=== PATIENT | male | born 1940 | race Caucasian/White ===

== ENCOUNTER 2025-04-19 03:44 | Emergency (ER) | payer SELFPAY ==
--- NOTE | 2025-04-19 | ECG_ITS ---
Test Reason : WEAKNESS Blood Pressure : */* mmHG Vent. Rate : 74 BPM Atrial Rate : * BPM P-R Int : * ms QRS Dur : 90 ms QT Int : 420 ms P-R-T Axes : * 10 -7 degrees QTcB Int : 466 ms Atrial fibrillation Nonspecific ST and T wave abnormality Abnormal ECG No previous ECGs available Referred By: Generic ED Physician Electronically Signed By: JJ PEREZ
--- NOTE | ~2025-04-19 | XR_ITS ---
EXAMINATION: XR CHEST CLINICAL INFORMATION: sepsis, PNA? COMPARISON: None available. TECHNIQUE: Portable AP upright position view of the chest was obtained. FINDINGS: Prominence of the interstitial markings with a pulmonary reticular pattern. Poor inspiration. Cardiomediastinal silhouette size is normal. Calcified plaque thoracic aorta. No gross consolidation pleural effusion or pneumothorax. Multilevel spondylosis. Degenerative changes in the shoulders. XR/XR chest 1V IMPRESSION: Chronic interstitial lung disease. Superimposed mild interstitial lung edema versus acute small airway inflammatory process cannot be excluded. Electronically signed by: Redd Diamond MD 04/19/2025 07:05 AM LILY
[2025-04-19 03:47] VITALS: BP 119/80; BP 138/80; PULSE 66; PULSE 72; RESP 18; TEMP 36.4; O2SAT 95; O2SAT 96; BMI 29.6
[2025-04-19 04:17] LABS: MANUAL DIFF FLAG NO
[2025-04-19 04:27] LABS: Hematocrit 36.8 % (42.0-52.0); Hemoglobin 12.6 g/dl (14.0-18.0); Imm Gran Abs Auto 0.05 X10*3/uL (0.00-0.03); Imm Gran Pct Auto 0.5 % (0.0-0.4); Lymphocytes Absolute Auto 1.1 X10*3/uL (1.2-4.9); Mean Corpuscular HGB Conc 34.2 g/dl (31.0-36.0); Mean Corpuscular Hemoglobin 33.7 pg (27.0-33.0); Mean Corpuscular Volume 98.4 fL (80.0-98.0); NRBC Abs Auto 0.000 X10*3/uL (0.0-0.012); NRBC Pct Auto 0.0 /100WBC (0.0-0.2); Platelet Count 244 X10*3/uL (160-400); Red Blood Count 3.74 X10*6/uL (4.60-5.80); White Blood Count 9.4 X10*3/uL (4.8-10.8)
[2025-04-19 04:32] LABS: COVID-19 Test Negative (Negative); IDNOW Serial# 55D5AD1C; IDNOW Serial# 58CA691E; Influenza B2 Negative (Negative)
[2025-04-19 04:37] LABS: Alanine Aminotransferase 25 U/L (0-40); Albumin Level 3.9 g/dL (3.5-5.0); Alkaline Phosphatase 62 U/L (39-117); Anion Gap 13 (12-20); Aspartate Amino Transferase 25 U/L (5-37); Blood Urea Nitrogen 24 mg/dL (9-16); Calcium 9.4 mg/dL (8.4-10.2); Carbon Dioxide 23 mmol/L (22-29); Chloride 110 mmol/L (96-108); Creatinine Clr Calc Pharmacy 29.1; Estimated Glomerular Filt Rate 33; Potassium 3.8 mmol/L (3.3-5.1); Sodium 142 mmol/L (135-145); Total Protein 6.9 g/dL (6.5-8.0)
[2025-04-19 04:45] LABS: Troponin-I High Sensitivity < 2.7 ng/L (<3.5-35.0)
[2025-04-19 04:58] VITALS: BP 133/75; PULSE 78; RESP 17; TEMP 35.3; O2SAT 96
[2025-04-19 05:08] LABS: Appearance Urine Clear; Glucose Urine UA Negative (Negative); PH 7.0 (5.0-9.0); Specific Gravity - Urine 1.010 (1.005-1.025)
--- NOTE | 2025-04-19 05:24 | ED_ITS ---
HPI - General Adult General Chief complaint: Nausea/Vomiting/Diarrhea Stated complaint: weakness Time Seen by Provider: 04/19/25 04:28 Source: patient and family Limitations: no limitations History of Present Illness ED Provider: Hanna Ornelas PA-C HPI narrative: 85-year-old male with a history of hypertension, hyperlipidemia, AFib on dabigatran, GERD and BPH who presents with extreme lethargy and weakness. Patient states he was not feeling ?like himself?, throughout the day. Overnight, he woke to use the bathroom, he was profoundly globally weak and fatigued. He felt lightheaded and developed nausea vomiting. Denies abdominal pain, diarrhea, fever or sick contacts with similar symptoms. Denies recent cough or cold symptoms. Denies headache, chest pain, shortness of breath or palpitations. No dysuria. The patient and his are here visiting family. Related Data Previous Rx's ?Medication ?Instructions ?Recorded ondansetron 4 mg disintegrating 4 mg PO Q8H PRN nausea and 04/19/25 tablet vomiting #4 tabs Allergies Allergy/AdvReac Type Severity Reaction Status Date / Time clindamycin Allergy Hives Verified 04/19/25 03:52 Review of Systems 2 Review of Systems: Yes all other systems are reviewed and are negative Constitutional: Constitutional: Reports fatigue, Denies fever(s), Denies headache(s), Reports lethargy and Reports malaise ENT: Reports dizziness and Denies headache(s) Cardiovascular: Cardiovascular: Denies chest pain and Denies dyspnea Respiratory: Respiratory: Denies cough and Denies dyspnea Gastrointestinal: Gastrointestinal: Denies abdominal pain, Reports nausea and Reports vomiting Genitourinary: Genitourinary: Denies dysuria Neurologic: Reports dizziness and Denies headache(s) Endocrine: Endocrine: Reports fatigue PMF Past Medical History Attestation statement: The following information was validated with the patient. Social History Social History Alcohol intake: current Alcohol type: hard liquor Smoked in Last 30 Days: No Use of substances other than those prescribed or required for medical reasons: No Advance Directives: No Advance Directives Information Provided: Yes Physical Exam ED Vital Signs: Vital Signs - 24 hr 04/19/25 03:47 04/19/25 04:58 04/19/25 06:32 Temperature 97.5 F 95.5 F L 97.5 F Pulse Rate 72 78 80 Respiratory Rate 18 17 15 Blood Pressure 119/80 133/75 119/79 Pulse Oximetry 96 96 97 Oxygen Delivery Method Room Air Room Air Room Air 04/19/25 08:25 04/19/25 09:06 Temperature 97.2 F 97.2 F Pulse Rate 74 74 Respiratory Rate 16 16 Blood Pressure 112/71 112/71 Pulse Oximetry 95 95 Oxygen Delivery Method Room Air Room Air BMI result Body Mass Index 29.6 Const Other: Awake, ill-appearing Orientation/consciousness: patient oriented x3 Eyes Other: No nystagmus Resp Effort & Inspection: normal respiratory effort Cardio Other: Normal peripheral perfusion GI Other: Soft, nondistended nontender no guarding Skin Other: Warm dry no rash Neuro General: patient oriented x3, no focal motor deficits and CN's II-XI intact bilaterally Extrem Other: Moves all extremities independently, is globally weak Psych Other: Cooperative, flat affect Course Course Course Narrative: Signed out to day team pending imaging, labs and final disposition Reevaluation(s) Reevaluation #1: At 5:18 a.m. on April 19, a sepsis focused exam was performed. The patient is hypothermic, rectal temp of 95.5?, in addition to screening labs which have already been obtained, adding on blood cultures, lactic, giving IV fluids, placing a warming blanket on the patient, we will assess for potential infectious sources; adding on chest x-ray, urinalysis, viral panel in process. Time: 05:18 Reevaluation #2: 6:34 AM 04/19/2025 (Dr. Sotero Aviles): I, Dr. Aviles have take over the care of this patient, I reviewed pertinent blood work and imaging, re-evaluated the patient when appropriate. Patient states woke up with nausea or vomiting no diarrhea, he was noted to be hypothermic, we do not know his basic renal function creatinine elevated to 1.94, no leukocytosis no lactic elevation, Urinalysis serologies negative, chest x-ray one view difficult to interpret we will add on CT chest dry as well as dry abdominal source, patient with loaded with the antibiotics ceftriaxone, and then I will re-evaluate the patient and determine disposition, patient states he overall feels well denied any ear pain sore throat any rashes or ulcerations on his body. 8:35 AM 04/19/2025 (Dr. Sotero Aviles): I spoke to the patient and his they did not want to stay for either CAT scan of the chest or abdomen and pelvis as I was recommending, they state he feels much better and if he feels worse to come back, they are going to delay his flight and rest at home, he has not been hypothermic off Sergey Hugger, I think it is reasonable I did not find anything in the workup for me to be exclusively concerned that he needs imaging or admission, patient is is able to make healthcare decisions regarding himself and he has is partner with the him to support so we will discharge per their request without AMA of note his abdominal exam is benign and he has been vomiting Medications Administered Discontinued Medications Generic Name Dose Route Start Last Admin Trade Name Freq PRN Reason Stop Dose Admin Sodium Chloride 500 mls @ 500 mls/hr 04/19/25 04:28 04/19/25 05:29 Ns IV 04/19/25 05:27 Infused .Q1H ONE Infusion Sodium Chloride 1,000 mls @ 999 mls/hr 04/19/25 05:00 04/19/25 06:25 Ns IV 04/19/25 06:00 Infused .Q1H1M CHRISTAL Infusion Ceftriaxone Sodium 2 gm/ 50 mls @ 100 mls/hr 04/19/25 05:18 04/19/25 06:04 Sodium Chloride IV 04/19/25 05:47 Infused ONCE ONE Infusion Ondansetron HCl 4 mg 04/19/25 04:28 04/19/25 04:38 Ondansetron Hcl 4 Mg/2 Ml Vial IVPUSH 04/19/25 04:29 4 mg ONCE ONE Administration Medical Decision Making Medical Decision Making MDM Narrative: 85-year-old male with a history of hypertension, hyperlipidemia, AFib on dabigatran, GERD and BPH who presents with extreme lethargy and weakness. Patient states he was not feeling ?like himself?, throughout the day. Overnight, he woke to use the bathroom, he was profoundly globally weak and fatigued. He felt lightheaded and developed nausea vomiting. Denies abdominal pain, diarrhea, fever or sick contacts with similar symptoms. Denies recent cough or cold symptoms. Denies headache, chest pain, shortness of breath or palpitations. No dysuria. The patient and his are here visiting family. Problem: Age, AFib History: Per patient and his spouse I have considered the following differential diagnoses: Sepsis, pneumonia, urinary tract infection, viral syndrome, acute intra-abdominal pathology, vertigo Plan: Patient meets sepsis criteria he is hypothermic, in addition to screening labs, we will be adding on blood cultures and lactic. We will be giving IV fluid therapy, and starting ceftriaxone. Viral panel in process, urine was just collected, chest x-ray pending. To note in regard to his lightheaded and dizziness, it is not vertiginous in nature, he has no nystagmus, position change of the head does not elicit symptoms. Given acute onset nausea vomiting, I am considering underlying intra-abdominal pathology, he denies abdominal pain, given his age, he could be masking his symptoms, adding on a CT scan of the abdomen and pelvis. I have independently reviewed the following tests: Labs: No overall leukocytosis, left shift noted, not anemic, no electrolyte abnormality, acute kidney injury of 1.94, troponin less than 2.7, viral panel negative, urine not infected, lactic EKG: AFib, rate of 74, nonspecific ST and T-wave abnormality, QT 466, Chest x-ray: CT abdomen and pelvis: Differential Diagnosis Differential Diagnoses: The differential diagnosis associated with the presentation includes See [facility] Admission/Observation Consideration of admission/observation: Escalation of care including admission/observation considered Lab Data [facility] Lab Attestation statement: I reviewed the patient's lab results. 04/19/25 04:08 04/19/25 04:08 Labs: Lab Results 04/19/25 04/19/25 04/19/25 Range/Units 04:08 05:02 05:22 WBC 9.4 (4.8-10.8) X10*3/uL RBC 3.74 L (4.60-5.80) X10*6/uL Hgb 12.6 L (14.0-18.0) g/dl Hct 36.8 L (42.0-52.0) % MCV 98.4 H (80.0-98.0) fL MCH 33.7 H (27.0-33.0) pg MCHC 34.2 (31.0-36.0) g/dl RDW 13.0 (11.0-16.0) % Plt Count 244 (160-400) X10*3/uL MPV 9.8 (9.4-12.4) fL Immature Gran % (Auto) 0.5 H (0.0-0.4) % Neut % (Auto) 73.2 H (45-73) % Lymph % (Auto) 12.0 L (20-40) % [place] % (Auto) 11.6 H (2-11) % Eos % (Auto) 1.8 (0-4) % Baso % (Auto) 0.9 (0-2) % Lymph # (Auto) 1.1 L (1.2-4.9) X10*3/uL Anson # (Auto) 1.1 (0.1-1.2) X10*3/uL Eos # (Auto) 0.2 (0.0-0.4) X10*3/uL Baso # (Auto) 0.1 (0.0-0.2) X10*3/uL Abs Immat Gran (auto) 0.05 H (0.00-0.03) X10*3/uL Absolute Neuts (auto) 6.9 (2.0-8.3) x10*3/uL Absolute Nucleated RBC 0.000 (0.0-0.012) X10*3/uL Nucleated RBC % (auto) 0.0 (0.0-0.2) /100WBC Sodium 142 (135-145) mmol/L Potassium 3.8 (3.3-5.1) mmol/L Chloride 110 H (96-108) mmol/L Carbon Dioxide 23 (22-29) mmol/L Anion Gap 13 (12-20) BUN 24 H (9-16) mg/dL Creatinine 1.94 H (0.5-1.4) mg/dL Estim Creat Clear Calc 29.1 Estimated GFR 33 Random Glucose 150 H (60-115) mg/dL Lactic Acid 1.8 (0.5-2.0) mmol/L Calcium 9.4 (8.4-10.2) mg/dL Total Bilirubin 0.3 (0.0-1.0) mg/dL AST 25 (5-37) U/L ALT 25 (0-40) U/L Alkaline Phosphatase 62 (39-117) U/L Troponin I High Sens < 2.7 (<3.5-35.0) ng/L Total Protein 6.9 (6.5-8.0) g/dL Albumin 3.9 (3.5-5.0) g/dL Urine Color Yellow Urine Appearance Clear Urine pH 7.0 (5.0-9.0) Ur Specific [place] 1.010 (1.005-1.025) Urine Protein Negative (Neg-Trace) mg/dL Urine Glucose (UA) Negative (Negative) mg/dL Urine Ketones Negative (Negative) mg/dL Urine Blood Negative (Negative) Urine Nitrite Negative (Negative) Ur Leukocyte Esterase Negative (Negative) COVID-19 (ALMA) Negative (Negative) COVID-19 Clin Com See Note Influenza Type A (BILL) Negative (Negative) Influenza Type B (BILL) Negative (Negative) Influenza A & B Note See Note Independent Interpretation I performed an independent interpretation of an: EKG Discharge Plan Discharge Clinical Impression: Acute kidney injury, Sepsis, Weakness generalized Patient Disposition: Home, Self-Care Additional Instructions: I did send Zofran 4 mg to the [facility] [place] in case he has nausea and vomiting and can use 1 pill every 8 hours, I am not sure what his baseline kidney function is but there was likely some degree of dehydration based on blood work, continue to make sure that he is staying well hydrated, with concerned that he has a underlying infection as his temperature was a little low initially which is pretty much the same as having a fever, viral swab negative, urinalysis negative, chest x-ray without obvious pneumonia, the rest of the blood work more or less reassuring, we spoke about getting CAT scan of the chest abdomen pelvis just to make sure there was no underlying infection that maybe missing, you did receive a dose of antibiotics which I do not feel that I need to continue at this time, and as we have discussed my recommendation was to stay in the hospital further workup but you chose to be discharged and I am okay with the plan just make sure that his anything worse and that is anything concerning come back to the ER, and I do recommend that he does not flight today and this note can serve as a flight protection that he was in the ER Prescriptions: New ondansetron 4 mg tablet,disintegrating 4 mg PO Q8H PRN (Reason: nausea and vomiting) Qty: 4 0RF Stand Alone Forms: Work/School Release Interventions: ED Discharge Assessment Last Done: 04/19/25 09:06 Discharge Date/Time: 04/19/25 09:07 Print Language: Yemeni
--- OUTSIDE RECORDS SUMMARY | 2025-04-19 06:16 | XMS_ITS | Clinical Summary ---
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 Xarelto QIEUSER QIEUSER METOPROLOL SUCCINATE ER 100 MG [id number] Take 1 Tablet (100 mg) by mouth once daily. metoprolol succinate [id number] QIEUSER QIEUSER FAMOTIDINE 40 MG TABS Take 1 Tablet (40 mg) by mouth at bedtime. famotidine [id number] QIEUSER QIEUSER EZETIMIBE 10 MG TABS Take 1 Tablet (10 mg) by mouth once daily. ezetimibe [id number] QIEUSER QIEUSER DILTIAZEM HCL ER BEADS 360 MG [id number] Take 1 Capsule (360 mg) by mouth once daily. diltiazem hcl [id number] QIEUSER QIEUSER DEXAMETHASONE SODIUM PHOSPHATE 4 MG/ML SOLN 4 mg Intra-Articular dexamethasone sodium phosphate [id number] QIEUSER QIEUSER DEXAMETHASONE SODIUM PHOSPHATE 4 MG/ML SOLN 4 mg Intra-Articular dexamethasone sodium phosphate [id number] QIEUSER QIEUSER cholecalciferol, vitamin D3, (Vitamin D3) 100 mcg (4,000 uni Vitamin D3 QIEUSER QIEUSER ATORVASTATIN CALCIUM 80 MG TABS Take 1 Tablet (80 mg) by mouth once daily. atorvastatin [id number] QIEUSER QIEUSER Medications Administered No information available. Allergies, Adverse Reactions, Alerts Allergy Name Reaction Description Start Date Severity Statu s Provider CLINDAMYCIN Hives Critical Active Arturo mayers Results Date Name Value Unit Range Flag Description Chart Maintenance: Patient I ntake ABSOLUTE MON 1.1 10*3/uL Monocyte s [#/volume] in Blood ABS EOS 0.2 {Cells}/uL Eosinophil s [#/volume] in Blood CA 9.7 mg/dL Calcium [Mass /volume] in Serum or Plasma ABSOLUTE BAS 0.0 10*3/uL Basophil s [#/volume] in Blood ABS LYMPHOCY 1.5 10*3/uL Absolute Lymphocytes ABS NEUTROPH 4.3 10*3/uL Neutroph ils [#/volume] in Blood NON-HDL CHOL 106 mg/dL choleste rol, non-HDL, total % BASO AUTO 0.4 % basophils as percent of blood leukocytes, automated count % EOS AUTO 2.4 % Eosinophil s/100 leukocytes in Blood by Automated count CHOL/HDL 2.66 cholesterol/ HDL ratio, serum GLUCOSE SER 111 mg/dL Glucose [ Mass/volume] in Serum or Plasma PLATELT(EST) Adequate platele t count, estimate TRIGLYC TOT 158 mg/dL Triglycer concepción [Mass/volume] in Serum or Plasma - mg/dL MPV 9.8 fL Platelet mean volume [Entitic volume] in Blood by Liza BUN/CREAT 20 Urea nitrog en/Creatinine [Mass Ratio] in Serum or Plasma MONOCYTE % 15.1 % Monocytes/ 100 leukocytes in Blood by Automated count MCH 33.3 pg MCH [Entitic mass] by Automated count RDW 14.3 % Erythrocyte d istribution width [Ratio] by Automated count MCHC 33.9 % MCHC [Mass/vo lume] by Automated count PMN % 61.3 % Neutrophils/1 00 leukocytes in Blood by Automated count MCV 99 fL MCV [Entitic volume] by Automated count ANION GAP 9 Anion gap 4 in Serum or Plasma SODIUM 137 mmol/L Sodium [Moles /volume] in Serum or Plasma WBC 7.0 10*3/mm3 Leukocytes [ #/volume] in Blood by Automated count RBC 4.56 10*6/mm3 Erythrocytes [#/volume] in Blood by Automated count PLATELETS 206 10*3/mm3 Platelets [#/volume] in Blood by Automated count HGB 15.2 g/dL Hemoglobin [M ass/volume] in Blood HCT 44.9 % Hematocrit [V olume Fraction] of Blood by Automated count BILI TOTAL 0.7 mg/dL Bilirubin. total [Mass/volume] in Serum or Plasma SGPT (ALT) 37 U/L Alanine am inotransferase [Enzymatic activity/volume] in Serum or Plasma SGOT (AST) 36 U/L Aspartate aminotransferase [Enzymatic activity/volume] in Serum or Plasma PSA 0.78 ng/mL Prostate spec ific Ag [Mass/volume] in Serum or Plasma PROTEIN, TOT 6.9 g/dL Protein [Mass/volume] in Serum or Plasma POTASSIUM 4.6 mmol/L Potassium [ Moles/volume] in Serum or Plasma MAGNESIUM 1.6 mg/dL Magnesium [ Moles/volume] in Serum or Plasma LDL 74 mg/dL Cholesterol i n LDL [Mass/volume] in Serum or Plasma - mg/dL HGBA1C 6.0 % Hemoglobin A1c/Hemoglobin, total in Blood - % HDL 64 mg/dL Cholesterol i n HDL [Mass/volume] in Serum or Plasma - mg/dL CREATININE 1.23 mg/dL Creatinine [Mass/volume] in Serum or Plasma CHOLESTEROL 170 mg/dL Cholester ol [Mass/volume] in Serum or Plasma - mg/dL CHLORIDE 102 mmol/L Chloride [Mo les/volume] in Serum or Plasma BUN 25 mg/dL Urea nitrogen [Mass/volume] in Serum or Plasma ALK PHOS 59 U/L Alkaline josé luis sphatase [Enzymatic activity/volume] in Blood Office Visit: Office Visit F ollow up Pt schd fax MEDS REVIEW Done Documenta tion of current medications (procedure) Plan of Care Type Date Detail Pending order Follow up as nee ded Pending order Immunofixation S danay w/Electrophoresis Pending order Methylmalonic Ac id Serum (MMA) Pending order T4 Free Direct Pending order TSH Pending order Vitamin B6 (Pyri doxine) - fasting after midnight Pending order Vitamin B12 Pending order We will contact you with test results Pending order Follow up as nee ded Procedures Code Procedure Name Date Entry Date [facility]-[id number] Documentation of current medicatio ns ORDERS Follow up as needed ORDERS Follow up as needed [facility]-[id number] Documentation of current medicatio ns ORDERS Immunofixation Serum w/Electrophoresis 08/08/26 ORDERS Methylmalonic Acid Serum (MMA) ORDERS T4 Free Direct ORDERS TSH ORDERS Vitamin B6 (Pyridoxi ne) - fasting after midnight ORDERS Vitamin B12 ORDERS We will contact you with test results 08/18/26 Vital Signs Date Name Value Unit Description Height 67.01 [in_us] height E&M BMI (Body Mass Index) 29.44 kg/m2 Bod y Mass Index (Ratio) Body Temperature 36.5 [degF] temperat ure E&M BP Diastolic 78 mm[Hg] blood pressu re, diastolic BP Systolic 122 mm[Hg] blood pressur e, systolic Heart Rate 62 /min pulse rate Respiratory Rate 16 /min respirat ory rate E&M Weight Measured 85.276 kg weight in kilograms E&M Immunizations No information available. Advance Directives No information available.
--- OUTSIDE RECORDS SUMMARY | 2025-04-19 06:17 | XMS_ITS | Clinical Summary ---
Author Organization [employer] [facility] Address [facility] [place] [address] Care Team Providers Care Warehouse Administrator Name Role Phone Javier Hagen MD Primary Care Provider [phone] Oswaldo Augustin MD Unavailable [phone] Stephanie Kelley MD Unavailable [phone] Chantal Zee MD Unavailable [phone] Allergies Active Allergy Reactions Criticality Noted Date Comments Clindamycin Hives Medium 08/31/2010 Medications cholecalciferol, vitamin D3, (Vitamin D3) 100 mcg (4,000 unit) cap 04/17/20 20 Active cyanocobalamin (B-12 Compliance) 1,000 mcg/mL injection 09/30/19 24 Active betamethasone, augmented dipropionate 0.05 % creamIndications:Pl aque psoriasis Apply topically to affected area(s) two times daily. Do not apply to face, underarms, or groin. 100 g 3 10/20/19 25 Active metoprolol succinate (TOPROL XL) 100 mg Sustained-Release tabletIndications:P ersistent atrial fibrillation (HC) Take 1 Tablet (100 mg) by mouth once daily. 100 Tablet 3 02/23/20 25 Active tamsulosin 0.4 mg capsuleIndications: BPH with urinary obstruction Take 1 Capsule (0.4 mg) by mouth once daily after a meal. 90 Capsule 3 02/28/20 25 Active famotidine (PEPCID) 40 mg tabletIndications:C hronic GERD Take 1 Tablet (40 mg) by mouth at bedtime. 90 Tablet 3 02/28/20 Active dabigatran (PRADAXA) 75 mg capsuleIndications: prevent thromboembolism in chronic atrial fibrillation Take 1 Capsule (75 mg) by mouth two times daily. 180 Capsule 3 03/06/20 Active atorvastatin (LIPITOR) 80 mg tabletIndications:H yperlipidemia, unspecified hyperlipidemia type Take 1 Tablet (80 mg) by mouth once daily. 100 Tablet 3 03/08/20 Active diltiazem CD (CARDIZEM CD) 360 mg extended release 24 hr capsuleIndications: Persistent atrial fibrillation (HC) Take 1 Capsule (360 mg) by mouth once daily. 90 Capsule 3 03/19/20 Active ezetimibe (ZETIA) 10 mg tabletIndications:P ersistent atrial fibrillation (HC),Hyperlipidemia , unspecified hyperlipidemia type Take 1 Tablet (10 mg) by mouth once daily. 90 Tablet 3 03/19/20 Active cyclobenzaprine (FLEXERIL) 5 mg tabletIndications:S train of flank, initial encounter Take 1 Tablet (5 mg) by mouth 3 times daily if needed for Muscle Spasm. 30 Tablet 1 02/17/20 025 Discontin ued(*Melanie ent states no longer taking) Elevated Toilet Seat with ArmsIndications:Lucrecia duque osteoarthritis of right hip For home use. Patient is having hip replacement surgery on 04/24/25 and will need this for his house 1 Each 02/28/20 025 Discontin ued(*Melanie ent states no longer taking) Grab Bar miscIndications:Lucrecia duque osteoarthritis of right hip As directed. Patient is having hip replacement surgery on 04/24/25 and will need this for his home. 1 Each 02/28/20 025 Discontin ued(*Melanie ent states no longer taking) WalkerIndications:P rimary osteoarthritis of right hip Walker with front wheels for home use. Patient is having hip replacement surgery on 04/24/25 and will need this for his home. 1 Each 02/28/20 025 Discontin ued(*Melanie ent states no longer taking) durable medical equipment (DME)Indications:Pr imary osteoarthritis of right hip Hand Held shower head- Patient is having hip replacement surgery on 04/24/25 1 Each 03/02/20 025 Discontin ued(*Melanie ent states no longer taking) Active Problems Problem Noted Date Diagnosed Date BPH with urinary obstruction 02/27/2025 Greater trochanteric bursitis of right hip 11/11 Primary osteoarthritis of right hip 11/11/2024 Skin cancer 08/12/2024 Overview (09/08/2024): 07/2024; right dorsal wrist; squamous cell carcinoma, invasive; s/p excision 09/08/24 Dr. Persaud Avascular necrosis of femur, unspecified lateral ity 01/13/2024 PAD (peripheral artery disease) 08/12/2022 Prostate cancer screening 02/27/2022 Senile purpura 08/20/2021 Chronic GERD 03/08/2021 Chronic atrial fibrillation 03/08/2021 Coronary artery calcification 09/05/2020 Overview (09/05/2020): Noted incidentally on chest CT done in [place] after a syncopal episode in late 2019. Syncope and collapse 03/20/2020 Overview (10/01/2022): -- Episode in 2019 thought due to dehydration -- Recurrent episodes late 2021, early 2022. 30-day ACT 09/2022 showed no pauses longer than 3.0seconds, no extreme bradycardia. Gross hematuria 03/20/2020 Non-ischemic cardiomyopathy, resolved 03/07/2020 Overview (10/17/2020): -EF 35 to 40% by echo in the [employer] system 10/2016 in the setting of atrial fibrillation with RVR -Normal EF 10/2019. -Cardiomyopathy felt to be most likely tachycardia mediated, with possible contribution from alcohol (which was curtailed substantially after atrial fibrillation diagnosis). -- Echo 10/2020: EF 55% HTN (hypertension) 12/02/2019 Bilateral leg edema 07/06/2018 Laceration of right thumb without foreign body 0 09/14/2017 CKD (chronic kidney disease) stage 3, GFR 30-59 ml/min 03/11/2017 Psoriasis 05/20/2016 Hyperlipidemia 12/21/2015 Herpes zoster without complication 09/21/2015 Chronic neck pain 10/26/2014 Vertigo 07/31/2014 Dermatitis 04/26/2014 Overview (04/26/2014): Eczema versus psoriasis, has features of both Pseudophakia, both eyes 07/27/2012 Actinic keratosis 08/12/2011 S/P LASIK (laser assisted in situ keratomileusis ) 10/15/2010 Impaired fasting glucose 07/09/2010 Neuroma, 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 ED (erectile dysfunction) Overview (07/06/2009): mild Polyp of colon Overview (07/06/2009): colon 07 Resolved Problems Problem Noted Date Diagnosed Date Resolved Date Heart failure with reduced ejection fraction 4 02/27/2025 Community acquired pneumonia of left lower lobe of lung 07/15/2018 08/26/2018 Chronic atrial fibrillation 01/20/2017 03/02/2018 Diverticulitis of intestine without perforation or abscess 02/05/2015 12/21/2015 Neck pain 08/22/2013 10/26/2014 Other and unspecified hyperlipidemia 07/06/2009 02/19/2016 Elevated prostate specific antigen (PSA) 07/06/2009 08/18/2012 Plantar fasciitis 11/23/2008 10/26/2014 Encounters Date Type Department Care Team Description 04/17/2025 Telephone [facility] [address] [facility] [address] [place] [address] Sunita Osuna emergency department rn Nurse Navigator (Pre-op check in) 04/05/2025 Telephone [facility] [address] [facility] [address] [place] [address] Aric Rocha MD Prior Authorization 03/27/2025 8:30 AM MATH AND SCIENCE INSTRUCTOR Office Visit [address] [place] [address] Yasmine Mcfarlane PA Pre-Op Exam (DOS - 04/24/2025 INPATIENT RIGHT 2-INCISION TOTAL HIP ARTHROPLASTY) 03/27/2025 Travel 03/22/2025 2:20 PM MATH AND SCIENCE INSTRUCTOR Office Visit [facility] [address] [place] [address] Karen Varghese PA Derm Problem 03/22/2025 Travel 03/19/2025 Refill [facility] [address] [place] [address] Chantal Zee MD Refill Request (Diltiazem Cd, Ezetimibe) 03/18/2025 Travel 03/14/2025 12:40 PM CDT Ancillary Procedure [facility] [address] [place] [address] 03/14/2025 Travel 03/09/2025 Travel 03/07/2025 Refill [facility] [address] [place] [address] Javier Hagen MD Refill Request (Atorvastatin) 03/04/2025 Refill [facility] [address] [place] [address] Chanatl Zee MD Refill Request (Dabigatran) 03/03/2025 Telephone [facility] [address] [place] [address] Sunita Osuna, emergency department rn Nurse Navigator (Discharge planning) 03/01/2025 Telephone [facility] [address] [place] [address] Stefan Patterson PA DME Supply (Hand-held showerhead post surgery ) 02/28/2025 Telephone [facility] [address] [place] [address] Chantal Zee MD Medication Management 02/27/2025 9:00 AM CDT Office Visit [facility] [address] [place] [address] Javier Hagen MD Medicare ANNUAL (subsequent) Visit (Fasting - difficulty urinating the last few months, not fully emptying bladder, dribbling ) 02/27/2025 Telephone [facility] [place] [address] [place] [phone] Stefan Patterson PA Medication Management (PAIN ) 02/27/2025 Travel 02/22/2025 9:00 AM CDT Office Visit [facility] [address] [place] [address] Chantal Zee MD Follow Up ( FOLLOW UP ) 02/22/2025 Orders Only [facility] [address] [place] [address] Chantal Zee MD 1 scan: (1-Ord) 02/22/2025 02/22/2025 Travel 02/16/2025 9:40 AM CDT Office Visit [facility] [address] [place] [address] Javier Hagen MD Follow Up ([facility] 02/14 - left flank pain - pain is still about the same, sitting is better, worse with movement - rates pain 11/24 - has some bruising there, a little bit of open skin he has been using heat on the area ) 02/15/2025 Travel 02/14/2025 8:47 AM CDT - 02/14/2025 1:04 PM CDT Emergency [facility] [address] [place] [id number] Jase Benitez MD Acute left flank pain (Primary Dx) Discharge Disposition: Home Self Care 02/14/2025 Travel 02/14/2025 Nurse Triage [facility] [address] [place] [address] Javier Hagen MD Abdominal Pain 02/08/2025 8:30 AM CDT Nurse/Clinic Staff Only [address] [address] Flu Shot 02/07/2025 Travel 01/30/2025 Telephone [facility] [place] [address] [place] [phone] Stefan Patterson PA Questions 01/27/2025 Transcribe Orders [facility] [place] [address] [place] [phone] Aric Rocha MD 01/26/2025 9:40 AM CDT Office Visit [facility] [place] [address] [facility] [address] [place] [phone] Stefan Patterson PA Hip Pain/problem (EP, right hip follow up) 01/26/2025 Telephone [facility] [place] [address] [facility] [address] [place] [phone] Sunita Osuna emergency department rn Nurse Navigator (Assessment/RAPT/1 on 1 education) 01/26/2025 Travel 01/25/2025 Travel 01/24/2025 Travel 01/23/2025 Telephone [facility] [address] [facility] [address] [place] [phone] Stefan Patterson PA Appointment (Hip Surgery) from Last 3 Months Immunizations Immunization Administration Dates Next Due AMB Influenza, IIV3 (Age >=3 years)(Flu Clinic Only) 04/01/2013,03/02/2012,03/06/2011 Amb Influenza, Inact (High-d ose) (Flu Clinic Only) 04/14/2016,03/12/2015 Amb Influenza, Inactivated A IIV4 (Age 65+ Years) Preserv Free 02/13/2020 COVID-19 VACCINE SPIKEVAX (M ODERNA 50MCG/0.5ML) 12YO+ PFS 01/27/2024,03/02/2023 COVID-19 vaccine (Moderna 50 mcg/0.5mL) 12YO+ BIVALENT MD YAJAIRAV 02/07/2025 COVID-19 vaccine (V[employer]-Bio NTech 30mcg/0.3mL) 12YO+ ANDREY-SUCROSE PF, MDV 09/12/2021 COVID-19 vaccine ([employer] NTech 30mcg/0.3mL) PF, MDV 02/27/2021,08/28/2020,08/07/2020 DT (Age < 7 years) 01/06/1995 Influenza Virus, Unspecified 02/29/2024, 04/11/2008,04/20/2007,04/02,04/07/2005,04/19/2004,02/28/2003 ,03/15/2002,04/29/2001 Influenza, High-dose Inactivated 024,03/02/2018,03/11/2017,04/14,03/12/2015,03/23/2014 Influenza, High-dose Quadriv alent Inactivated 02/02/2021 Influenza, IIV3 (Age 6-35 mos) 03/06/2011 Influenza, IIV3 (Age >=3 years) 04/01/20 13,03/02/2012,03/21/2010,02/27,04/11/2008,04/20/2007,04/02/2006 ,04/19/2004,02/28/2003,03/15/2002,04/17 Influenza, Inactivated AIIV4 (Age 65+ Years) Preserv Free 03/02/2023,02/27/2022 Influenza, Inactivated IIV3 (Age 65+ Years) Preserv Free 02/08/2025,02/24/2019,03/02/2018,03/11 Pneumococcal Poly,23-Valent (Pneumovax) 05/28/2005 Pneumococcal conj 13-Valent (Prevnar 13) 10/26/2014,05/18/2014 Pneumococcal, Unspecified 05/18/1999 RSV, Recombinant ADJ Reconst ituted (Arexvy 120MCG/0.5mL) 03/01/2024 Td (Age >=7 Years) 12/14/2009,05/28/2005 Tdap 09/14/2017 Varicella Vaccine 04/01/2013, 2,03/21/2010,02/27 Zoster (Shingrix-RZV, recombinant) 05/13/2018, Zoster (Zostavax-ZVL, live) 02/14/2016, 0 Family History Medical History Relation Name Comments Thyroid Disease Daughter Cancer-prostate Father Cancer-prostate Maternal Uncle Diabetes Son Relation Name Status Comments Daughter Father Maternal Uncle Son Social History Tobacco Use Types Packs/Day Years Used Date Smoking Tobacco: Former Cigarettes Q uit: 05/18/1962 Smokeless Tobacco: Never Alcohol Use Standard Drinks/Week Comments Yes 0 (1 standard drink = 0.6 oz pur e alcohol) 4-5- per week PHQ-2 Answer Date Recorded PHQ-2 TOTAL SCORE 0 02/27/2025 Social Connections Answer Date Recorded Do you often feel lonely or isolated from those around you? 0 03/27/2025 Alcohol Use Answer Date Recorded How often do you have a drink containing alcohol ? 3 03/27/2025 How many drinks containing a lcohol do you have on a typical day when you are drinking? 0 03/27/2025 How often do you have five or more drinks on one occasion? 0 03/27/2025 Financial Resource Strain Answer Date R ecorded Difficulty of Paying Living Expenses 3 03/27/2025 Difficulty of Paying Living Expenses Not on file 03/27/2025 Food Insecurity Answer Date Recorded Do you worry your food will run out before you are able to buy more? 1 03/27/2025 Transportation Needs Answer Date Record ed Does lack of transportation keep you from medica l appointments? 1 03/27/2025 Does lack of transportation keep you from work, meetings or getting things that you need? 1 03/27/2025 Housing Stability Answer Date Recorded What is your housing situation today? 1 03/27/2025 Interpersonal Safety Answer Date Record ed Are you being hit, kicked, p ushed or yelled at (see row info)? No 02/14/2025 Interpersonal Safety Abuse 12 - 18 Not on file 02/14/2025 Interpersonal Safety Ambulatory Vulnerability No t on file 02/14/2025 Utilities Answer Date Recorded Do you have trouble paying f or utilities (for example, heat, electricity, water, phone)? 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 Not on file Not on file Not on file Last Filed Vital Signs Vital Sign Reading Time Taken Comments Blood Pressure 116/68 03/27/2025 8:37 AM MATH AND SCIENCE INSTRUCTOR Pulse 70 03/27/2025 8:37 AM MATH AND SCIENCE INSTRUCTOR Temperature 36.8 C (98.2 F) 02/16/2025 9:43 AM CDT Respiratory Rate 16 02/27/2025 9:13 AM CDT Oxygen Saturation 97% 03/27/2025 8:37 AM MATH AND SCIENCE INSTRUCTOR Inhaled Oxygen Concentration - - Weight 81.6 kg (180 lb) 03/27/2025 8:37 AM MATH AND SCIENCE INSTRUCTOR Height 167.6 cm (5' 6 ) 03/27/2025 8:37 AM MATH AND SCIENCE INSTRUCTOR Body Mass Index 29.05 03/27/2025 8:37 AM MATH AND SCIENCE INSTRUCTOR Plan of Treatment Upcoming Encounters Date Type Department Care Team (Latest Contact Info) Description 04/24/2025 9:50 AM MATH AND SCIENCE INSTRUCTOR Hospital Encounter [facility] [address] [facility] [place] [address] Aric Rocha MD [address] [facility] [address] [place] [address] 04/24/2025 9:50 AM MATH AND SCIENCE INSTRUCTOR - 04/24/2025 12:02 PM MATH AND SCIENCE INSTRUCTOR Surgery [facility] [address] [facility] [place] [address] Aric Rocha MD [address] [facility] [address] [place] [address] INPATIENT RIGHT 2-INCISION TOTAL HIP ARTHROPLASTY 05/08/2025 9:40 AM MATH AND SCIENCE INSTRUCTOR Office Visit [facility] - [facility] [place] [address] [facility] [address] [place] [phone] Sree Andres, ATC [address] [facility] [address] [place] [address] 05/16/2025 9:30 AM MATH AND SCIENCE INSTRUCTOR Office Visit [facility] [address] [place], [place] [phone] Arik Hicks, OD [address] [place] [address] 09/12/2025 10:40 AM CDT Office Visit [facility] [address] [place] [address] Karen Varghese PA [address] [place] [address] Scheduled Procedures Name Priority Associated Diagnoses Date/Ti me ARTHROPLASTY HIP MINIMALLY INVASIVE Tier 4: > 90 days Primary osteoarthritis of right hip 04/24/2025 9:50 AM MATH AND SCIENCE INSTRUCTOR Health Maintenance Due Date Last Done Comments COVID-19 vaccine series ( season) 2025 02/07/2025, 01/27/2024, 03/02/2023, Additional history exists Depression screening for age 12+ 02/27/2026 02/27/2025, 02/25/2024, 01/27/2024, Additional history exists Medicare Wellness for age 65+ 02/28/2026 02/27/2025, 02/25/2024, 03/02/2023, Additional history exists BMI (ht and wt on same day) for age 18+ 03/27/2026 03/27/2025, 02/27/2025, 02/22/2025, Additional history exists Tetanus booster 09/15/2027 09/14/2017, 11/17, 05/28/2005 Pneumococcal series for age 50+ Completed 10/26/2014, 05/18/2014, 05/28/2005, Additional history exists Zoster (shingles) series for age 50+ Completed 05/13/2018, 03/02/2018, 02/14/2016, Additional history exists RSV vaccine for adults or Completed 03/01/2024 Influenza Vaccine Completed 02/08/2025, , 01/28/2024, Additional history exists Hepatitis B series for 19+ Aged Out N o longer eligible based on patient's age to complete this topic Medical Devices Implanted Type Area Marketing Research Intern Device Identifier Shelf Expiration Date Model / Serial / Lot Lens Iol 20 [employer]ecnis - [id number] Implanted:Qty: 1 on 02/02/2012 by Oswaldo Augustin MD at [facility] Left: Eye [employer] 09/14/2016 [id number] / [id number] / [id number] - Charisse [id number] Lens Iol - 1 - Lens Iol 22 [employer]nis Implanted:Qty: 1 on 04/19/2012 by Oswaldo Augustin MD at [facility] [employer] [id number] / [id number] / Procedures Procedure Name Priority Date/Time Associated Diagnosis Comments BASIC METABOLIC PANEL Routine 03/27/2025 9:11 AM MATH AND SCIENCE INSTRUCTOR Preoperative examination CBC W PLT NO DIFF Routine 03/27/2025 9:1 1 AM MATH AND SCIENCE INSTRUCTOR Preoperative examination ECHO TTE COMPLETE W CONTRAST Routine 03/14/2025 1:11 PM CDT Persistent atrial fibrillation (HC) Dyspnea on exertion LIPID PANEL W REFLEX MEASURED LDL Routine 02/22/2025 9:47 AM CDT Hyperlipidemia, unspecified hyperlipidemia type EKG 12 LEAD Routine 02/22/2025 12:00 AM CDT Persistent atrial fibrillation (HC) CT ABDOMEN PELVIS W STAT 02/14/2025 1 1:20 AM CDT UA W/ SEDIMENT EXAM REFLEXED PER CRITERIA STAT 02/14/2025 10:01 AM CDT CBC WITH AUTO DIFFERENTIAL STAT 02/14/2025 9:52 AM CDT COMP METABOLIC PANEL STAT 02/14/2025 9:52 AM CDT PROTIME-INR STAT 02/14/2025 9:52 AM CDT CBC WITH AUTO DIFFERENTIAL STAT 02/14/2025 9:52 AM CDT from Last 3 Months Results * (ABNORMAL) CBC W PLT NO DIFF (03/27/2025 9:11 AM MATH AND SCIENCE INSTRUCTOR) WHITE BLOOD CELL COUNT 7.5 3.8 - 10.8 Thousand/ uL 03/28/2025 2:29 AM MATH AND SCIENCE INSTRUCTOR [facility] RED BLOOD CELL COUNT 3.84(L) 4.20 - 5.80 Million/u L 03/28/2025 2:29 AM MATH AND SCIENCE INSTRUCTOR [facility] HEMOGLOBIN 13.1(L) 13.2 - 17.1 g/dL 03/28/2025 2:29 AM MATH AND SCIENCE INSTRUCTOR [facility] HEMATOCRIT 38.7 38.5 - 50.0 % 03/28/2025 2:29 AM MATH AND SCIENCE INSTRUCTOR [facility] MCV 100.8(H) 80.0 - 100.0 fL 03/28/2025 2:29 AM MATH AND SCIENCE INSTRUCTOR [facility] MCH 34.1(H) 27.0 - 33.0 pg 03/28/2025 2:29 AM MATH AND SCIENCE INSTRUCTOR [facility] MCHC 33.9 32.0 - 36.0 g/dL 03/28/2025 2:29 AM MATH AND SCIENCE INSTRUCTOR [facility] Comment: For adults, a slight decrease in the calculated MCHC value (in the range of 30 to 32 g/dL) is most likely not clinically significant; however, it should be interpreted with caution in correlation with other red cell parameters and the patient's clinical condition. RDW 13.0 11.0 - 15.0 % 03/28/2025 2:29 AM MATH AND SCIENCE INSTRUCTOR [facility] PLATELET COUNT 335 140 - 400 Thousand/ uL 03/28/2025 2:29 AM MATH AND SCIENCE INSTRUCTOR [facility] MPV 9.9 7.5 - 12.5 fL 03/28/2025 2:29 AM MATH AND SCIENCE INSTRUCTOR [facility] Blood BLOOD SPECIMEN / Unknown [facility] / Unknown 03/27/2025 9:11 AM MATH AND SCIENCE INSTRUCTOR 03/27/2025 9:13 AM MATH AND SCIENCE INSTRUCTOR us Yasmine ROCK HEMATOLOGY Final Resu lt [facility] [address] [place] [address], [place] [phone] * (ABNORMAL) BASIC METABOLIC PANEL (03/27/2025 9:11 AM MATH AND SCIENCE INSTRUCTOR) SODIUM 139 135 - 146 mmol/L 03/28/2025 6:00 AM MATH AND SCIENCE INSTRUCTOR [facility] POTASSIUM 4.5 3.5 - 5.3 mmol/L 03/28/2025 6:00 AM MATH AND SCIENCE INSTRUCTOR [facility] CARBON DIOXIDE 23 20 - 32 mmol/L 03/28/2025 6:00 AM MATH AND SCIENCE INSTRUCTOR [facility] GLUCOSE 82 65 - 99 mg/dL 03/28/2025 6:00 AM MATH AND SCIENCE INSTRUCTOR [facility] Comment: Fasting reference interval CALCIUM 9.7 8.6 - 10.3 mg/dL 03/28/2025 6:00 AM MATH AND SCIENCE INSTRUCTOR [facility] CREATININE 1.62(H) 0.70 - 1.22 mg/dL 03/28/2025 6:00 AM MATH AND SCIENCE INSTRUCTOR [facility] BUN/CREATININE RATIO 22 6 - 22 (calc) 03/28/2025 6:00 AM MATH AND SCIENCE INSTRUCTOR [facility] EGFR 41(L) > OR = 60 mL/min/1. 73m2 03/28/2025 6:00 AM MATH AND SCIENCE INSTRUCTOR [facility] UREA NITROGEN (BUN) 35(H) 7 - 25 mg/dL 03/28/2025 6:00 AM MATH AND SCIENCE INSTRUCTOR [facility] ELECTROLYTE BALANCE 8 7 - 17 mmol/L (calc) 03/28/2025 6:00 AM MATH AND SCIENCE INSTRUCTOR [facility] CHLORIDE 108 98 - 110 mmol/L 03/28/2025 6:00 AM MATH AND SCIENCE INSTRUCTOR [facility] Blood BLOOD SPECIMEN / Unknown [facility] / Unknown 03/27/2025 9:11 AM MATH AND SCIENCE INSTRUCTOR 03/27/2025 9:13 AM MATH AND SCIENCE INSTRUCTOR Yasmine ROCK CHEMISTRY Final Resu lt [facility] [address] [place] [address], [place] [phone] * ECHO TTE COMPLETE W CONTRAST (03/14/2025 1:11 PM CDT) EJECTION FRACTION 61% PROSOLV Anatomical Region Laterality Modality Ultrasound 03/14/2025 12:2 8 PM CDT Narrative 03/14/2025 3:[address] PM [address]T [address], [place] [address] Main: Transthoracic Echo Report CHANO DUARTE Brionnarandall ID: [id number] Age: 85 : 1940 Ordering Provider: CHANTAL ZEE Exam Date: 03/14/2025 12:28 Gender: M Machine Tracer: HGR Height: 66 in BSA: 1.91 m BP: 110 / 64 Weight: 180 lbs BMI: 29.1 kg/m HR: 91 Location: [facility] Rhythm: Atrial Fibrillation Procedure Components: 2D imaging with contrast, Color Doppler, Spectral Doppler Indications: Dyspnea on exertion; Persistent atrial fibrillation (HC) Technical Quality: Fair Contrast: Definity Constrast Dose (ml): 2 [facility]#: [id number] Final Conclusion Previous Study: 09/05/2022 Normal left ventricular chamber size. Normal left ventricular wall thickness. Normal left ventricular systolic function. Indeterminate left ventricular diastolic function. Normal right ventricular chamber size. Normal right ventricular systolic function. Severe left atrial enlargement, moderate right atrial enlargement Valve changes consistent with age, no hemodynamically significant stenosis or regurgitation. Prior study not available for comparison due to software limitation Estimated EF: 61% FINDINGS Left Ventricle Normal left ventricular chamber size. Normal left ventricular wall thickness. Normal left ventricular systolic function. Calculated left ventricular ejection fraction (modified Charles technique) is 61 %. No regional wall motion abnormalities. Diastolic Function Indeterminate left ventricular diastolic function. Right Ventricle Normal right ventricular chamber size. Normal right ventricular systolic function. Right ventricular systolic pressure cannot be estimated due to inability to detect peak tricuspid regurgitation Doppler velocity. Left Atrium Severe left atrial enlargement. Left atrial volume index is 59 ml/m . Right Atrium Moderate right atrial enlargement. Atrial Septum No evidence of inter-atrial shunt by color flow Doppler. Aortic Valve Trileaflet aortic valve. Aortic valve sclerosis without stenosis. Trivial aortic valve regurgitation. Mitral Valve Mildly calcified mitral annulus. Mildly thickened mitral valve. No mitral valve stenosis. Mild mitral valve regurgitation. Tricuspid Valve Normal tricuspid valve. mild tricuspid valve regurgitation. Pulmonic Valve Pulmonary valve was not well visualized. Trivial pulmonary valve regurgitation. Pericardium No pericardial effusion. Prominent epicardial fat pad. Aorta Aortic sinus of Valsalva is normal in size (3.3 cm, ZScore = -1.9). Normal indexed ascending aorta dimension (3.6 cm, 1.9 cm/m ). Inferior Vena Cava Normal inferior vena cava with normal inspiratory collapse. MEASUREMENTS (Male / Female) Normal Values 2D MEASUREMENTS AND LV FUNCTION IVS Diastolic Thickness 0.842 cm < 1.1 cm / < 1.0 cm LV Diastolic Diameter PLAX 4.32 cm 4.2 - 5.9 / 3.9 - 5.3 cm LV Diastolic Diameter Index 2.26 cm/m LVPW Diastolic Thickness 0.78 cm < 1.1 cm / < 1.0 cm LV Systolic Diameter PLAX 3.14 cm LV Systolic Diameter Index 1.64 cm/m LVOT Diameter 2 cm LVOT Cardiac Output 4.63 l/min LVOT Cardiac Index 2.35 l/min m LVOT Stroke Volume 50.8 ml Stroke Volume Index 25.8 ml/m LV Ejection Fraction MOD BP 61.2 % >= 55 % LA Volume MOD BP 112 ml LA Volume Index MOD BP 58.6 ml/m 16 - 34 ml/m RV Diastolic Basal Diameter 3.94 cm RV Diastolic Mid Diameter 2.93 cm LV Mass 108 g LV Mass Index 55.5 g/m Sinuses of Valsalva Diameter(d) 3.3 cm Ascending Aorta Diameter(s) 3.6 cm IVC Diameter Expiration 1.77 cm Ascending Aorta Index 1.88 cm/m M MODE TAPSE MM 1.94 cm AORTIC VALVE AV Peak Velocity 1.18 m/sec < 2.0 m/sec AV Peak Gradient 5.61 mmHg AV Mean Gradient 3.6 mmHg AV Velocity Time Integral 24.3 cm LVOT Peak Velocity 0.811 m/sec LVOT Velocity Time Integral 16.2 cm AV Area Cont Eq vti 2.09 cm AV Area Cont Eq pk 2.15 cm AV Dimensionless Index 0.665 TRICUSPID VALVE AND ESTIMATED PRESSURES Right Atrial Pressure 3 mmHg HCM DATA LVOT DOE (r) 2.63 mmHg Aortic Root ZScore: -1.92 Gallo Coreas MD (Electronically Signed) [facility] Accredited Site Final Date: 14 March 2025 15:35 ICD-10 Codes: R06.09; I48.19 Procedure Note Gallo Coreas MD - 03/14/2025 [facility] [address], [place] [address] Main: Transthoracic Echo Report CHANO DUARTE Brionnarandall ID: [id number] Age: 85 : 1940 Ordering Provider:CHANTAL ZEE Exam Date: 03/14/2025 12:28 Gender: M Machine Tracer: HGR Height: 66 in BSA: 1.91 m BP: 110 / 64 Weight: 180 lbs BMI: 29.1 kg/m HR: 91 Location: [facility] Rhythm: Atrial Fibrillation Procedure Components: 2D imaging with contrast, Color Doppler, SpectralDoppler Indications: Dyspnea on exertion; Persistent atrial fibrillation (HC) Technical Quality: Fair Contrast: Definity Constrast Dose (ml): 2 [facility]#: [id number] Final Conclusion Previous Study: 09/05/2022 Normal left ventricular chamber size. Normal left ventricular wallthickness. Normal left ventricular systolic function. Indeterminate left ventricular diastolic function. Normal right ventricular chamber size. Normal right ventricular systolicfunction. Severe left atrial enlargement, moderate right atrial enlargement Valve changes consistent with age, no hemodynamically significantstenosis or regurgitation. Prior study not available for comparison due to software limitation Estimated EF: 61% FINDINGS Left Ventricle Normal left ventricular chamber size. Normal leftventricular wall thickness. Normal left ventricular systolic function. Calculated left ventricular ejection fraction (modified Simpsontechnique) is 61 %. No regional wall motion abnormalities. Diastolic Function Indeterminate left ventricular diastolic function. Right Ventricle Normal right ventricular chamber size. Normal rightventricular systolic function. Right ventricular systolic pressure cannot be estimated due to inability to detect peak tricuspidregurgitation Doppler velocity. Left Atrium Severe left atrial enlargement. Left atrial volume index is59 ml/m . Right Atrium Moderate right atrial enlargement. Atrial Septum No evidence of inter-atrial shunt by color flow Doppler. Aortic Valve Trileaflet aortic valve. Aortic valve sclerosis withoutstenosis. Trivial aortic valve regurgitation. Mitral Valve Mildly calcified mitral annulus. Mildly thickened mitralvalve. No mitral valve stenosis. Mild mitral valve regurgitation. Tricuspid Valve Normal tricuspid valve. mild tricuspid valveregurgitation. Pulmonic Valve Pulmonary valve was not well visualized. Trivial pulmonaryvalve regurgitation. Pericardium No pericardial effusion. Prominent epicardial fat pad. Aorta Aortic sinus of Valsalva is normal in size (3.3 cm, ZScore = -1.9).Normal indexed ascending aorta dimension (3.6 cm, 1.9 cm/m ). Inferior Vena Cava Normal inferior vena cava with normal inspiratorycollapse. MEASUREMENTS (Male / Female) Normal Values 2D MEASUREMENTS AND LV FUNCTION IVS Diastolic Thickness 0.842 cm < 1.1 cm / < 1.0cm LV Diastolic Diameter PLAX 4.32 cm 4.2 - 5.9 / 3.9 -5.3 cm LV Diastolic Diameter Index 2.26 cm/m LVPW Diastolic Thickness 0.78 cm < 1.1 cm / < 1.0cm LV Systolic Diameter PLAX 3.14 cm LV Systolic Diameter Index 1.64 cm/m LVOT Diameter 2 cm LVOT Cardiac Output 4.63 l/min LVOT Cardiac Index 2.35 l/min m LVOT Stroke Volume 50.8 ml Stroke Volume Index 25.8 ml/m LV Ejection Fraction MOD BP 61.2 % >= 55 % LA Volume MOD BP 112 ml LA Volume Index MOD BP 58.6 ml/m 16 - 34 ml/m RV Diastolic Basal Diameter 3.94 cm RV Diastolic Mid Diameter 2.93 cm LV Mass 108 g LV Mass Index 55.5 g/m Sinuses of Valsalva Diameter(d) 3.3 cm Ascending Aorta Diameter(s) 3.6 cm IVC Diameter Expiration 1.77 cm Ascending Aorta Index 1.88 cm/m M MODE TAPSE MM 1.94 cm AORTIC VALVE AV Peak Velocity 1.18 m/sec < 2.0 m/sec AV Peak Gradient 5.61 mmHg AV Mean Gradient 3.6 mmHg AV Velocity Time Integral 24.3 cm LVOT Peak Velocity 0.811 m/sec LVOT Velocity Time Integral 16.2 cm AV Area Cont Eq vti 2.09 cm AV Area Cont Eq pk 2.15 cm AV Dimensionless Index 0.665 TRICUSPID VALVE AND ESTIMATED PRESSURES Right Atrial Pressure 3 mmHg HCM DATA LVOT DOE (r) 2.63 mmHg Aortic Root ZScore: -1.92 Gallo Coreas MD (Electronically Signed) [facility] Accredited Site Final Date: 14 March 2025 15:35 ICD-10 Codes: R06.09; I48.19 us Chantal Zee MD ECHO ORD Final Resu lt * (ABNORMAL) LIPID PANEL W REFLEX MEASURED LDL (02/22/2025 9:47 AM CDT) CHOLESTEROL, TOTAL 157 <200 mg/dL 02/23/2025 4:23 AM CDT [facility] TRIGLYCERIDES 183(H) <150 mg/dL 02/23/2025 4:23 AM CDT [facility] HDL CHOLESTEROL 59 > OR = 40 mg/dL 02/23/2025 4:23 AM CDT [facility] NON HDL CHOLESTEROL 98 <130 mg/dL (calc) 02/23/2025 4:23 AM CDT [facility] Comment: For patients with diabetes plus 1 major ASCVD risk factor, treating to a non-HDL-C goal of <100 mg/dL (LDL-C of <70 mg/dL) is considered a therapeutic option. CHOL/HDLC RATIO 2.7 <5.0 (calc) 02/23/2025 4:23 AM CDT [facility] LDL-CHOLESTEROL 72 mg/dL (calc) 02/23/2025 4:23 AM CDT [facility] Comment: Reference range: <100 Desirable range <100 mg/dL for primary prevention; <70 mg/dL for patients with CHD or diabetic patients with > or = 2 CHD risk factors. LDL-C is now calculated using the Gerry-Salazar calculation, which is a validated novel method providing better accuracy than the Friedewald equation in the estimation of LDL-C. Gerry SS et al. SAYDA. 2013;310(19): 4208-3121 (http://education.TVTY.com/faq/VWM927) Blood BLOOD SPECIMEN / Unknown [facility] / Unknown 02/22/2025 9:47 AM CDT 02/22/2025 9:47 AM CDT Chantal Zee MD CHEMISTRY Final Resu lt [facility] [address] [place] [address], * EKG 12 LEAD (02/22/2025 12:00 AM CDT) Chantal Zee MD EKG ORD Final Resu lt * CT Abdomen Pelvis w IV (Oral Contrast = NO) (02/14/2025 11:20 AM CDT) Anatomical Region Laterality Modality Abdomen, Pelvis, AORTA, LIVER, SPLEEN Computed Tomography 02/14/2025 11:2 0 AM CDT Impressions 02/14/2025 11:38 AM CDT No acute findings in the abdomen or pelvis. No urinary stone. No acute hematoma. Narrative 02/14/2025 11:38 AM CDT For Patients: As a result of the Cures Act, medical imaging exams and procedure reports are released immediately into your electronic medical record. You may view this report before your referring provider. If you have questions, please contact your health care provider. EXAM: CT ABDOMEN PELVIS W LOCATION: [facility] MEDICAL IMAGING DATE: 02/14/2025 INDICATION: Flank pain. Left-sided flank pain. On blood thinners. Overlying ecchymosis. COMPARISON: CT abdomen pelvis runoff 09/04/2021 reviewed. TECHNIQUE: CT scan of the abdomen and pelvis was performed following injection of IV contrast. Multiplanar reformats were obtained. Dose reduction techniques were used. CONTRAST: 80 mL Omnipaque 350 FINDINGS: LOWER CHEST: Mild linear and reticular areas of scarring or atelectasis in the lower lungs. Coronary artery calcification. HEPATOBILIARY: Diffuse hepatic steatosis. No focal liver lesion. Normal gallbladder. PANCREAS: Normal. SPLEEN: Normal. ADRENAL GLANDS: Normal. KIDNEYS/BLADDER: Normal. No urinary stone or hydronephrosis. Normal symmetric renal parenchymal enhancement. BOWEL: Moderate colonic diverticulosis, greatest in the sigmoid region. No acute findings. No evidence of diverticulitis or colitis. No evidence of bowel obstruction. Normal appendix. No free air, free fluid or abscess. LYMPH NODES: Normal. VASCULATURE: Moderate atherosclerotic calcifications. Normal caliber abdominal aorta. PELVIC ORGANS: Normal. MUSCULOSKELETAL: Medium size fat-containing left inguinal hernia, unchanged. No evidence of acute or active bleeding. No focal hematoma. No acute osseous abnormality. Mild degenerative changes in the spine. Grade I anterolisthesis L5 on S1. Procedure Note Hemant Enriquez MD - 02/14/2025 For Patients: As a result of the Century Cures Act, medical imagingexams and procedure reports are released immediately into your electronicmedical record. You may view this report before your referring provider.If you have questions, please contact your health care provider. EXAM: CT ABDOMEN PELVIS W LOCATION: [facility] MEDICAL IMAG[facility] DATE: 02/14/2025 INDICATION: Flank pain. Left-sided flank pain. On blood thinners.Overlying ecchymosis. COMPARISON: CT abdomen pelvis runoff 09/04/2021 reviewed. TECHNIQUE: CT scan of the abdomen and pelvis was performed followinginjection of IV contrast. Multiplanar reformats were obtained. Dosereduction techniques were used. CONTRAST: 80 mL Omnipaque 350 FINDINGS: LOWER CHEST: Mild linear and reticular areas of scarring or atelectasis inthe lower lungs. Coronary artery calcification. HEPATOBILIARY: Diffuse hepatic steatosis. No focal liver lesion. Normalgallbladder. PANCREAS: Normal. SPLEEN: Normal. ADRENAL GLANDS: Normal. KIDNEYS/BLADDER: Normal. No urinary stone or hydronephrosis. Normalsymmetric renal parenchymal enhancement. BOWEL: Moderate colonic diverticulosis, greatest in the sigmoid region. Noacute findings. No evidence of diverticulitis or colitis. No evidence ofbowel obstruction. Normal appendix. No free air, free fluid or abscess. LYMPH NODES: Normal. VASCULATURE: Moderate atherosclerotic calcifications. Normal caliberabdominal aorta. PELVIC ORGANS: Normal. MUSCULOSKELETAL: Medium size fat-containing left inguinal hernia,unchanged. No evidence of acute or active bleeding. No focal hematoma. Noacute osseous abnormality. Mild degenerative changes in the spine. Grade Ianterolisthesis L5 on S1. IMPRESSION: No acute findings in the abdomen or pelvis. No urinary stone. No acutehematoma. us Jase Benitez MD CT Final R esult * (ABNORMAL) UA W/ SEDIMENT EXAM REFLEXED PER CRITERIA (02/14/2025 10:01 AM T) COLOR Yellow Yellow Color 02/14/2025 10:13 AM T [facility] CLARITY Clear Clear Clarity 02/14/2025 10:13 AM [facility] SPECIFIC GRAVITY,URINE 1.025 1.010, 1.015, 1.020, 1.025 02/14/2025 10:13 AM [facility] PH,URINE 6.5 6.0, 7.0, 8.0, 5.5, 6.5, 7.5, 8.5 02/14/2025 10:13 AM [facility] UROBILINOGEN, QUALITATIVE Normal Normal EU/dl 02/14/2025 10:13 AM [facility] PROTEIN, URINE Trace(A) Negative mg/dL 02/14/2025 10:13 AM [facility] GLUCOSE, URINE Negative Negative mg/dL 02/14/2025 10:13 AM [facility] KETONES,URINE Trace(A) Negative mg/dL 02/14/2025 10:13 AM [facility] BILIRUBIN,URI NE Negative Negative 02/14/2025 10:13 AM [facility] OCCULT BLOOD,URINE Negative Negative 02/14/2025 10:13 AM [facility] NITRITE Negative Negative 02/14/2025 10:13 AM [facility] LEUKOCYTE ESTERASE Negative Negative 02/14/2025 10:13 AM [facility] Urine URINE SPECIMEN / Unknown Non-Blood / Unknown 02/14/2025 10:01 AM CDT 02/14/2025 10:07 AM T Jase Benitez MD URINE Final R esult [facility] SENDOUT INTERNAL ZIP [id number] [place] [address] * (ABNORMAL) CBC WITH AUTO DIFFERENTIAL (02/14/2025 9:52 AM [facility]) WHITE BLOOD COUNT 7.6 4.5 - 11.0 thou/cu mm 02/14/2025 10:03 AM [facility] RED BLOOD COUNT 4.13(L) 4.30 - 5.90 mil/cu mm 02/14/2025 10:03 AM [facility] HEMOGLOBIN 14.1 13.5 - 17.5 g/dL 02/14/2025 10:03 AM [facility] HEMATOCRIT 40.6 37.0 - 53.0 % 02/14/2025 10:03 AM [facility] MCV 98 80 - 100 fL 02/14/2025 10:03 AM [facility] MCH 34.1(H) 26.0 - 34.0 pg 02/14/2025 10:03 AM [facility] MCHC 34.7 32.0 - 36.0 g/dL 02/14/2025 10:03 AM [facility] RDW 13.7 11.5 - 15.5 % 02/14/2025 10:03 AM [facility] PLATELET COUNT 229 140 - 440 thou/cu mm 02/14/2025 10:03 AM [facility] MPV 9.7 6.5 - 11.0 fL 02/14/2025 10:03 AM [facility] NRBC 0.0 % 02/14/2025 10:03 AM [facility] ABS NRBC 0.0 thou /cu mm 02/14/2025 10:03 AM [facility] % NEUT 69.6 % 02/14/2025 10:03 AM [facility] % LYMPH 12.5 % 02/14/2025 10:03 AM [facility] % MONO 13.3 % 02/14/2025 10:03 AM [facility] % EOS 3.2 % 02/14/2025 10:03 AM [facility] % BASO 0.9 % 02/14/2025 10:03 AM [facility] % IMMATURE GRAN (METAS,MYELOS,AR OS) 0.5 % 02/14/2025 10:03 AM [facility] ABSOLUTE NEUTROPHILS 5.3 1.7 - 7.0 thou/cu mm 02/14/2025 10:03 AM [facility] ABSOLUTE LYMPHOCYTES 1.0 0.9 - 2.9 thou/cu mm 02/14/2025 10:03 AM [facility] ABSOLUTE MONOCYTES 1.0(H) <0.9 thou/cu mm 02/14/2025 10:03 AM [facility] ABSOLUTE EOSINOPHILS 0.2 <0.5 thou/cu mm 02/14/2025 10:03 AM [facility] ABSOLUTE BASOPHILS 0.1 <0.3 thou/cu mm 02/14/2025 10:03 AM [facility] ABSOLUTE IMMATURE GRANULOCYTES(MET ,MYELOS,PROS) 0.0 <0.3 thou/cu mm 02/14/2025 10:03 AM CDT [facility] Blood BLOOD SPECIMEN / Unknown IV Start / Unknown 02/14/2025 9:52 AM CDT 02/14/2025 10:00 AM CDT Jase Benitez MD HEMATOLOGY Final R esult [facility] SENDOUT INTERNAL ZIP [id number] [place] [id number] * PROTIME-INR (02/14/2025 9:52 AM CDT) INR 1.1 <1.3 02/14/2025 10:09 AM CDT [facility] PROTIME 12.4 10.6 - 12.4 sec 02/14/2025 10:09 AM CDT [facility] Blood BLOOD SPECIMEN / Unknown IV Start / Unknown 02/14/2025 9:52 AM CDT 02/14/2025 10:00 AM CDT [facility] - 02/14/2025 10:09 AM CDT Therapeutic Range 2.0-3.0 for most anticoagulated patients 2.5-3.5 or 4.0 for high risk patients The INR is only used for patients on stable oral anticoagulant therapy. It makes no significant contribution to the diagnosis or treatment of patients whose Protime is prolonged for other reasons. INR results are increased when heparin levels exceed 1.0 U/mL, which corresponds to an aPTT >125 seconds if the patient is on UFH. Jase Benitez MD HEMATOLOGY Final R esult [facility] SENDOUT INTERNAL ZIP [id number] [place] [address] * (ABNORMAL) COMP METABOLIC PANEL (02/14/2025 9:52 AM CDT) SODIUM 139 136 - 145 mmol/L 02/14/2025 10:28 AM CDT [facility] POTASSIUM 4.0 3.5 - 5.1 mmol/L 02/14/2025 10:28 AM [facility] CHLORIDE 108(H) 98 - 107 mmol/L 02/14/2025 10:28 AM [facility] CO2,TOTAL 19(L) 22 - 29 mmol/L 02/14/2025 10:28 AM [facility] ANION GAP 12 5 - 18 02/14/2025 10:28 AM [facility] GLUCOSE 121(H) 70 - 99 mg/dL 02/14/2025 10:28 AM [facility] CALCIUM 9.6 8.8 - 10.4 mg/dL 02/14/2025 10:28 AM [facility] Comment: Reference ranges for this test were updated on 03/22/2024 to reflect our healthy population more accurately. Reference range changes are not retroactively applied to results, but previous results using the same methodology can be interpreted in the context of the new reference range. BUN 33(H) 8 - 23 mg/dL 02/14/2025 10:28 AM [facility] CREATININE 1.59(H) 0.70 - 1.20 mg/dL 02/14/2025 10:28 AM [facility] BUN/CREAT RATIO 21(H) 10 - 20 10:28 AM [facility] eGFR 42(L) >90 mL/min/1. 73m2 02/14/2025 10:28 AM [facility] Comment:As of 2021, eG FR is calculated by the CKD-EPI creatinine equation without race adjustment. eGFR can be influenced by muscle mass, exercise, and diet. The reported eGFR is an estimation only and is only applicable if the renal function is stable. ALBUMIN 4.0 4.0 - 4.9 g/dL 02/14/2025 10:28 AM [facility] PROTEIN,TOTAL 7.4 6.0 - 8.0 g/dL 02/14/2025 10:28 AM [facility] BILIRUBIN,TOTAL 0.7 0.0 - 1.2 mg/dL 02/14/2025 10:28 AM [facility] ALK PHOSPHATASE 68 40 - 129 IU/L 02/14/2025 10:28 AM [facility] ALT (SGPT) 25 10 - 50 IU/L 02/14/2025 10:28 AM CDT [facility] AST (SGOT) 24 10 - 50 IU/L 02/14/2025 10:28 AM CDT [facility] Blood BLOOD SPECIMEN / Unknown IV Start / Unknown 02/14/2025 9:52 AM CDT 02/14/2025 10:00 AM CDT Jase Benitez MD CHEMISTRY Final R esult [facility] SENDOUT [place] [address]IP [id number] [address] [place] [address] from Last 3 Months Insurance MEDICARE PART A HB ONLY [facility] AETNA MR T MR Advance Directives Documents on File Type Date Recorded 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 Healthcare Directive 02/08/2015 9:28 AM hc d signed, 02-07-15 * Full Code (Latest Code Status on File) Date Activated Date Inactivated Comments 03/31/2018 8:57 AM 04/01/2018 2:39 AM * Full Code Date Activated Date Inactivated Comments 04/19/2012 10:39 AM 04/19/2012 3:50 PM * Full Code Date Activated Date Inactivated Comments 02/02/2012 10:43 AM 02/02/2012 4:23 PM * Full Code Date Activated Date Inactivated Comments 01/05/2012 9:51 AM 01/06/2012 2:35 AM Care Teams Warehouse Administrator Relationship Specialty Start Date End Date Javier Hagen MD PCP - General 05/21/09 Oswaldo Augustin MD Ophthalmology Surgery 08/18/12 Stephanie Kelley MD Dermatology 08/18/12 Chantal Zee MD [address] [facility] [address] [place] [address] Cardiovascular Disease 11/30/23
--- OUTSIDE RECORDS SUMMARY | 2025-04-19 06:17 | XMS_ITS | Encounter Summary ---
Author Organization [facility] Address [facility] [place] [address] Care Team Providers Care Insurance Follow Up Representative Name Role Phone Javier Hagen MD Primary Care Provider [phone] Oswaldo Augustin MD Unavailable [phone] Stephanie Kelley MD Unavailable + [phone] Rikki Martin MD Unavailable [phone] Reason for Visit * Reason Onset Date Comments Cardiology Appointment 12/09/2024 TEAMS MES RAJESH FROM OTONIEL Armstrong RN/STAFF MESSAGES Encounter Details Date Type Department Care Team (Late st Contact Info) Description 12/09/2024 Telephone [facility] [address] [place], [place] [id number] Rikki Martin MD [address] [place], [place] [id number] Cardiology Appointment (TEAMS MESSAGE FROM OTONIEL Armstrong RN/STAFF MESSAGES) Social History Tobacco Use Types Packs/Day Years Used Date Smoking Tobacco: Former Cigarettes Q uit: 05/18/1962 Smokeless Tobacco: Never Alcohol Use Standard Drinks/Week Comments Yes 0 (1 standard drink = 0.6 oz pur e alcohol) 4-5- per week PHQ-2 Answer Date Recorded PHQ-2 TOTAL SCORE 0 02/25/2024 Social Connections Answer Date Recorded Do you often feel lonely or isolated from those around you? 0 03/22/2024 Financial Resource Strain Answer Date R ecorded Difficulty of Paying Living Expenses 3 03/22/2024 Difficulty of Paying Living Expenses Not on file 03/22/2024 Food Insecurity Answer Date Recorded Do you worry your food will run out before you are able to buy more? 1 03/22/2024 Transportation Needs Answer Date Record ed Does lack of transportation keep you from medica l appointments? 1 03/22/2024 Does lack of transportation keep you from work, meetings or getting things that you need? 1 03/22/2024 Housing Stability Answer Date Recorded What is your housing situation today? 1 03/22/2024 Utilities Answer Date Recorded Do you have trouble paying f or utilities (for example, heat, electricity, water, phone)? 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 Radha Martin at the clinic of their choice. No known testing is due at this time. Arleen Shook Provider Coordinator [facility] 12/09/2024....9:10 AM. * Telephone Encounter - Arleen Shook - 12/09/2024 9:09 AM CDT ----- Message from Otoniel Armstrong sent at 11/16/2024 1:10 PM CDT ----- Regarding: Radha Martin needs Oct appt This patient called me yesterday wanting to make appointment for his annual visit with Dr. Martin due on February, but schedule wasn't open. It is now open. Will you please call him at some point to arrange follow-up? Thank you, Otoniel Angela RN .......... 11/16/2024 1:11 PM documented in this encounter Plan of Treatment Upcoming Encounters Date Type Department Care Team (Latest Contact Info) Description 04/24/2025 9:50 AM SUPERVISOR QUILTING Hospital Encounter [facility] [address] [place] [address] Aric Rocha MD [address] [facility] [address] [place] [address] 04/24/2025 9:50 AM SUPERVISOR QUILTING - 04/24/2025 12:02 PM SUPERVISOR QUILTING Surgery [facility] [address] [place] [address] Aric Rocha MD [address] [facility] [address] [place] [address] INPATIENT RIGHT 2-INCISION TOTAL HIP ARTHROPLASTY 05/08/2025 9:40 AM SUPERVISOR QUILTING Office Visit [facility] - [facility] [place] [facility] [address] [facility] [address] [place] [phone] Sree Andres, ATC [address] [facility] [address] [place] [address] 05/16/2025 9:30 AM SUPERVISOR QUILTING Office Visit [facility] [address] [place] [address] Arik Hicks, OD [address] [place], [place] [phone] 09/12/2025 10:40 AM CDT Office Visit [facility] [address] [place] [phone] Karen Varghese, SHWETA [address] [place], [place] [phone] Scheduled Procedures Name Priority Associated Diagnoses Date/Ti me ARTHROPLASTY HIP MINIMALLY INVASIVE Tier 4: > 90 days Primary osteoarthritis of right hip 04/24/2025 9:50 AM SUPERVISOR QUILTING documented as of this encounter Visit Diagnoses Not on filedocumented in this encounter Additional Health Concerns Assessment Noted Time PHQ-9 Depression Total Score: 0 08/23/19 14 8:00 AM CDT A Body Mass Index follow-up plan has been documented for the patient 02/25/2024 10:37 AM CDT PHQ-2 Depression Total Score: 0 02/25/20 24 10:00 AM CDT documented as of this encounter Care Teams Insurance Follow Up Representative Relationship Specialty Start Date End Date Javier Hagen MD PCP - General 05/21/09 Oswaldo Augustin MD Ophthalmology Surgery 08/18/12 Stephanie Kelley MD Dermatology 08/18/12 Rikki Martin MD [address] [address] Cardiovascular Disease 11/30/23 documented as of this encounter
--- OUTSIDE RECORDS SUMMARY | 2025-04-19 06:17 | XMS_ITS | Encounter Summary ---
Author Organization [facility] Address [address] [place] [address] Care Team Providers Care Turning Sander Tender Name Role Phone Javier Hagen MD Primary Care Provider [phone] Oswaldo Augustin MD Unavailable [phone] Stephanie Kelley MD Unavailable [phone] Rikki Martin MD Unavailable Reason for Visit * Reason Onset Date Comments Ortho Nurse Navigator 04/17/2025 Pre-op adriane ck in Encounter Details Date Type Department Care Team (Late st Contact Info) Description 04/17/[address] 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 General recommendations include holding supplements for 10 -14 days if possible. Advil for 2 days, Aleve for 4 days. Ok to stay on Tylenol for pain up until surgery. Has patient had their Pre op H&P yet? yes, ONN reviewed specific instructions on H&P withpatient Continue taking Carvedilol (Coreg); be sure to take the evening before and/or morning of the procedure. Take your other medications as usual prior to the procedure Hold vitamins and/or supplements for 1 week prior to the procedure Okay to take Acetaminophen (Tylenol) up until the procedure Hold / avoid NSAIDs (e.g. ibuprofen, naproxen) prior to procedure: 2 days for ibuprofen (Advil) and4 days for naproxen (Aleve). Anticoagulation / Bridging Procedure date: 04-24-2025 Thrombotic Risk Factor(s): Atrial fibrillation with a CHADS-2 score of 2 Last dose of Dabigatran (Pradaxa) to be taken 04-18-2025 May consider longer DOAC hold time and/or consultation with nephrology given reduced renal function. Pts preferred pharmacy and allergies confirmed in chart? yes on 04/17/2025 Joint Replacement Education: 1 on 1 education. Pre-op education video. Does patient have the Navdeep Wipes? yes Interested in a Same Day Discharge? No, patient is scheduled as Inpatient. Discharge plan: Plans on IP stay then likely would benefit from TCU 1)[facility] 2)[facility] 3)[facility] vs home care Does patient have a confirmed ride home? yes Relationship and Name : Son Main Sunita Osuna RN .................... 04/17/2025 3:23 PM DENT RESPONSE SPECIALIST documented in this encounter Plan of Treatment Upcoming Encounters Date Type Department Care Team (Latest Contact Info) Description 04/24/2025 9:50 AM INCIDENT RESPONSE SPECIALIST Hospital Encounter [facility] [address] [place] [address] Aric Rocha MD [address] [facility] [address] [place] [address] 04/24/2025 9:50 AM INCIDENT RESPONSE SPECIALIST - 04/24/2025 12:02 PM INCIDENT RESPONSE SPECIALIST Surgery [facility] [address] [place] [address] Aric Rocha MD [address] [facility] [address] [place] [address] INPATIENT RIGHT 2-INCISION TOTAL HIP ARTHROPLASTY 05/08/2025 9:40 AM INCIDENT RESPONSE SPECIALIST Office Visit [facility] Orthopedics - [facility] Re[facility] - [place] [address] [place] [phone] Sree Andres, ATC [address] [place] [address] 05/16/2025 9:30 AM INCIDENT RESPONSE SPECIALIST Office Visit [facility] [address] [place] [address] Arik Hicks, OD [address] [place] [address] 09/12/2025 10:40 AM CDT Office Visit [facility] [address] [place] [phone] [place] [address] [place], [place] [phone] Scheduled Procedures Name Priority Associated Diagnoses Date/Ti me ARTHROPLASTY HIP MINIMALLY INVASIVE Tier 4: > 90 days Primary osteoarthritis of right hip 04/24/2025 9:50 AM INCIDENT RESPONSE SPECIALIST documented as of this encounter Visit Diagnoses Not on filedocumented in this encounter Additional Health Concerns Assessment Noted Time PHQ-9 Depression Total Score: 0 08/23/19 14 8:00 AM CDT A Body Mass Index follow-up plan has been documented for the patient 02/27/2025 12:18 PM CDT PHQ-2 Depression Total Score: 0 02/28/20 25 9:00 AM CDT documented as of this encounter Care Teams Turning Sander Tender Relationship Specialty Start Date End Date Javier Hagen MD PCP - General 05/21/09 Oswaldo Augustin MD Ophthalmology Surgery 08/18/12 Stephanie Kelley MD Dermatology 08/18/12 Rikki Martin MD [address] [place] [address] Cardiovascular Disease 11/30/23 documented as of this encounter
--- OUTSIDE RECORDS SUMMARY | 2025-04-19 06:17 | XMS_ITS | Data Portability ---
Author Organization [facility], [facility] Address [address] [place] [address] Care Team Providers Care Crtts Name Role Phone ANA MARIACHRIS LUX Primary Care Provider Assessment Encounter Date Assessment Date Assessment LastModified by Organization Details LastModified Time 04/27/2024 04/27/2024 This is a 84 year old male who is referred for the evaluation and management of benign prostatic hyperplasia with lower urinary tract symptoms. [email or web address] Not available 04/26/2024 13:49:49 Plan of Treatment Reminders Order Date Submit Date Provider Last Modified By Organization Details Last Modified Time Details Appointments None recorded. Lab urinalysis, dipstick 2023 024 [facility], [address], [address], [place], [address], 4 15:35:42 urinalysis, microscopic 2023 024 [facility], [address], [address], [place], [address], 5 05:01:14 cytology, urine 2019 020 [facility], [address], [address], [place], [address], 0 16:05:55 Referral None recorded. Procedures None recorded. Surgeries None recorded. Imaging CT, urogram 2019 020 [email or web address] 1 [facility] [place], [address], [place], [address], 0 09:43:28 Medication Orders solifenacin 5 mg tablet 2023 024 zara [id number], [address], [place], [address], 4 11:21:05 Patient TargetsNo targets recorded. Patient Instructions Encounter Date Encounter Id Patient Instructions Last Modified By Organization Details Last Modified Time 04/27/2024 [id number] Overactive bladder (OAB), urge urinary incontinence (UUI): -Discussed first-line conservative management including timed voiding, urge suppression strategies, pelvic floor exercises, and avoidance of bladder irritants. -Discussed second-line therapies including pelvic floor physical therapy and OAB medications. -After hearing the options, patient would like to try solifenacin. Side effects of solifenacin were discussed in detail. Potential side effects include dry mouth, constipation, UTI, blurry vision - follow up for PVR check in 1 month as he is going to [place] early Jose zara Not available 04/27/2024 10:22:33 Reason for Referral None Reported. Results Created Date Observation Date Name Description Value Unit Range Abnormal Flag Note LastModifiedBy Organization Detail LastModifiedTime 04/24/20 20 04/24/2020 cytol ogy, urine apresult AP result s FINAL CYTOP ATHOL OGY REPOR T Clini marline Histo ry Hx Bladd er Cance r Urine Sampl e Type Voide d Urine Diagn osis URINE , CYTOL OGY: 1. Negat [employer] for high- grade uroth elial carci noma 2. Degen erati ve jaramillo es Lisset d by Teto huang MD Board Certi fied in Anato marisa, Clini marline and Cytop athol ogy, Speci carmela willoughby in [facility] Patho logy MICRO SCOPI C DESCR IPTIO N Micro scopi c exami natio n and the inter preta tion of this case was perfo rmed at [facility] - a divis ion of [facility], [address] [place] [address], [address], [place] [address] . Gross Descr iptio n The speci men consi sts of 30 cc of yello w, sligh tly cloud y urine . A ThinP rep slide is prepa red. Not Available [facility] [address] [place] [address] [address], [place], [address], 04/25/2020 16:05:55 02/25/20 24 02/25/2024 PSA, total , serum or plasm a PSA 0.76 Not Available Not Availa ble 04/18/2024 15:14:31 04/27/20 24 04/27/2024 UA WITHO UT MICRO - CS URISC AN blood - uriscan NEGATI VE negati ve Not Available [facility] [address] [place] [address], [place], [address], 04/27/2024 15:35:42 04/27/20 24 04/27/2024 UA WITHO UT MICRO - CS URISC AN bilirubin - uriscan NEGATI VE mg/dL negati ve Not Available [facility] [address] [place] [address], [place], [address], 04/27/2024 15:35:42 04/27/20 24 04/27/2024 UA WITHO UT MICRO - CS URISC AN urobilinogen - uriscan NORMAL mg/dL normal Not Available [facility] [address] [place] [address] [address], [place], [address], 04/27/2024 15:35:42 04/27/20 24 04/27/2024 UA WITHO UT MICRO - CS URISC AN ketones - uriscan NEGATI VE mg/dL negati ve Not Available [facility] [address] [place] [address], [place], [address], 04/27/2024 15:35:42 04/27/20 24 04/27/2024 UA WITHO UT MICRO - CS URISC AN protein - uriscan NEGATI VE mg/dL negati ve Not Available [facility] [address] [place] [address], [place], [address], 04/27/2024 15:35:42 04/27/20 24 04/27/2024 UA WITHO UT MICRO - CS URISC AN nitrites - uriscan NEGATI VE negati ve Not Available [facility] [address] [facility] [address], [place], [address], 04/27/2024 15:35:42 04/27/20 24 04/27/2024 UA WITHO UT MICRO - CS URISC AN glucose - uriscan NEGATI VE mg/dL negati ve Not Available [facility] [address] [facility] [address], [place], [address], 04/27/2024 15:35:42 04/27/20 24 04/27/2024 UA WITHO UT MICRO - CS URISC AN pH - uriscan 6.00 5.00-9 .00 Not Available [facility] [address] [facility] [address], [place], [address], 04/27/2024 15:35:42 04/27/20 24 04/27/2024 UA WITHO UT MICRO - CS URISC AN sp. gravity - uriscan <=1.01 1.01-1 .03 Not Available [facility] [address] [facility] [address], [place], [address], 04/27/2024 15:35:42 04/27/20 24 04/27/2024 UA WITHO UT MICRO - CS URISC AN leukocytes - uriscan NEGATI VE negati ve Not Available [facility] [address] [facility] [address], [place], [address], 04/27/2024 15:35:42 04/27/20 24 04/27/2024 UA WITHO UT MICRO - CS URISC AN color - uriscan YELLOW lt. yellow ;yello w Not Available [facility] [address] [facility] [address], [place], [address], 04/27/2024 15:35:42 04/27/20 24 04/27/2024 UA WITHO UT MICRO - CS URISC AN clarity - uriscan CLEAR clear Not Available [facility] [address] [facility] [address], [place], [address], 04/27/2024 15:35:42 04/27/20 24 04/27/2024 UA WITHO UT MICRO - CS URISC AN total urine volume (mL) 10 /mL ----- ----- ----- ----- ----- ----- ----- ----- ----- ----- ----- ----- ----- ----- ---- *Favian cotter note the follo wing minim um quant ities for addit ional urine testi ng: - Atypi cals: 3 mL - Cytol ogy: 20 mL - GC/CH : 2 mL - FISH: 30 mL - Atypi cals w/ GC/CH : 5 mL - Cytol ogy PLUS FISH: 50 mL - Urine Cultu re: 3 mL ----- ----- ----- ----- ----- ----- ----- ----- ----- ----- ----- ----- ----- ----- ---- This lab resul t is being provi ded to you and your provi sera at the same time in compl iance with the 21st Centu ry Cures Act. Your provi sera may not have had time to revie w and make recom menda tions based on the resul t. Yasmin bah allow up to one week for provi sera revie w. Not Available [facility] [address] [facility] [facility] [address], [place], [address], 04/27/2024 15:35:42 04/30/20 20 04/30/2020 CT, abdom en + pelvi s, w/wo contr ast No observ ation record ed. [email or web address] [facility] [address], [place], [address], 04/30/2020 14:51:05 Result Notes None recorded. Procedures Surgical History Date Name Laterality Status Provider Name and Address Organization Details Recorded Time 05/16/20 24 Bladder Scan completed Bernice Rasmussen [facility] 05/16/2024 12:53:45 04/27/20 24 Bladder Scan completed Manjula Amato [facility] 04/27/2024 10:05:12 04/24/20 20 CystoscopyMale completed Lois Diggs MD [address] [facility],[address], [place], [address], [facility] 04/24/2020 09:17:33 05/18/19 00 Diagnostic colonoscopy completed Not Available Health Note 04/24/2024 10:27:27 Removal of sperm duct(s) completed Not Available Health Note 04/24/2024 10:27:27 Imaging Results None recorded. Procedure Notes None recorded. Medical Equipment None Reported. Allergies Allergen ID Allergen Name Allergen Category Reaction Reaction Severity Criticality Documentation Date Start Date Code Code System Note Provider Name and Address Organization Details Recorded Time 977370 clindamyc in Not available Not available Not available Not available 04/24/2020 2582 [facility]47 Medications Name Sig Start Date Stop Date Status Note LastModified by Organization Details LastModified Time atorvasta tin 80 mg tablet Take 1 Tablet (80 mg) by mouth once daily.* active Not Available Not Available No t Available diltiazem CD 180 mg capsule,e xtended release 24 hr TAKE 1 CAPSULE BY MOUTH ONCE DAILY 04/27 completed HN: Patient reports no longer taking Not Available Not Available Not Available metoprolo l succinate ER 50 mg tablet,ex tended release 24 hr TAKE 1 TABLET BY MOUTH ONCE DAILY 04/24 completed Not Available Not Available Not Available famotidin e 40 mg tablet TAKE ONE TABLET BY MOUTH AT BEDTIME* active Not Available Not Available No t Available betametha sone, augmented 0.05 % topical cream Apply topicall y to affected area(s) two times daily. Do not apply to face, underarm s, or groin. Applying to bilatera l arms, legs, upper back.* active Not Available Not Available No t Available metoprolo l succinate ER 100 mg tablet,ex tended release 24 hr TAKE ONE TABLET BY MOUTH ONCE DAILY* active Not Available Not Available No t Available diltiazem ER 360 mg capsule,2 4 hr,extend ed release TAKE 1 CAPSULE BY MOUTH ONCE DAILY 04/27 completed Not Available Not Available Not Available diltiazem CD 360 mg capsule,e xtended release 24 hr TAKE ONE CAPSULE BY MOUTH ONCE DAILY* active Not Available Not Available No t Available omeprazol e 40 mg capsule,d elayed release Take 1 Capsule (40 mg) by mouth once daily before a meal.* active Not Available Not Available No t Available triamcino lone acetonide 0.1 % topical cream Apply to affected areas twice a day for 2 weeks. Then once a day for 2 weeks. Then every other day for 2 weeks. Can restart as needed with flares.* active Not Available Not Available No t Available spironola ctone 25 mg tablet TAKE 1 TABLET BY MOUTH ONCE DAILY 04/24 completed Not Available Not Available Not Available tamsulosi n 0.4 mg capsule Take 1 Capsule (0.4 mg) by mouth once daily after a meal.* active Not Available Not Available No t Available omeprazol e 20 mg capsule,d elayed release TAKE 1 CAPSULE BY MOUTH EVERY DAY 04/27 completed Not Available Not Available Not Available bumetanid e 1 mg tablet TAKE 1 TABLET BY MOUTH ONCE DAILY active Not Available Not Available No t Available gabapenti n 100 mg capsule Take 1-3 Capsules (100-300 mg) by mouth three times daily.* active Not Available Not Available No t Available ezetimibe 10 mg tablet TAKE ONE TABLET BY MOUTH ONCE DAILY* 04/27 completed Not Available Not Available Not Available ezetimibe 10 mg-simvas tatin 10 mg tablet 10mg/10m g 1/day active Not Available Not Available No t Available solifenac in 5 mg tablet TAKE ONE TABLET BY MOUTH ONCE DAILY FOR OAB.* active Not Available Not Available No t Available famotidin e 40mg 1/day 04/27 completed Not Available Not Available Not Available metoprolo l succinate METOPROL OL SUCCINAT E 1/day 04/27 completed Not Available Not Available Not Available Xarelto 20 mg tablet Take 1 Tablet (20 mg) by mouth once daily with evening meal.* active Not Available Not Available No t Available Vitals Date Recorded Body height Body mass index (BMI) Body weight Provider Name and Address Organization Details Last Updated DateTime 04/24/2020 167.64 cm 29.9 kg/m2 01269.59 g Jair Tom [facility] 04/24/2020 09:03:25 Date Recorded Body mass index (BMI) Body weight Body height Provider Name and Address Organization Details Last Updated DateTime 04/27/2024 29.1 kg/m2 66173.40815 37705 g 167.64 cm Not Available Health Note 04/27/2024 09:54:07 Date Recorded Body height Provider Name an d Address Organization Details Last Updated DateTime 05/16/2024 167[address] [facility] y 05/16/2024 13:29:24 Social History Question Answer Notes LastModified by Organizat ion Details LastModified Time Tobacco Smoking Status Former Smoker Not Available Health Note 04/24/2024 10:27:28 Do You Have An Advance Directive? No [email or web address] Information not available 04/24/2024 What Is Your Level Of Caffeine Consumption? Moderate [email or web address] Information not available 04/24/2024 How Much Tobacco Do You Chew? None [email or web address] Information not available 04/24/2024 When Did You Quit Smoking? 16+yearssince lastcigarette [email or web address] Information not available 04/27/2024 Ethnicity Not /Lati no [email or web address] Information not available 04/27/2024 Preferred Language Occitan [email or web address] Information not available 04/27/2024 Recreational Drug Use No Information not available 04/24/2020 Marital Status Informatio n not available 04/24/2020 Do You Have A Medical Power Of Administrative Fellow? Yes [email or web address] Information not available 04/24/2024 What Was The Date Of Your Most Recent Tobacco Screening? 04/27/2024 [email or web address] Information not available 04/24/2024 Have You Ever Been Counseled For Unhealthy Alcohol Use? No [email or web address] Information not available 04/27/2024 What Is Your Relationship Status? [email or web address] Information not available 04/24/2024 Are You Sexually Active? No [email or web address] Information not available 04/24/2024 How Much Tobacco Do You Smoke? No Information not available 04/27/2024 Has Tobacco Cessation Counseling Been Provided? Yes [email or web address] Information not available 04/27/2024 On What Date Was Tobacco Cessation Counseling Provided? 04/27/2024 [email or web address] Information not available 04/27/2024 How Many Years Have You Smoked Tobacco? 0 [email or web address] Information not available 04/24/2024 How Many Days In The Past Year Have You Consumed 5 Or More Drinks? 0 [email or web address] Information no t available 04/24/2024 Sex: Unknown Functional Status Question Answer Note LastModified by Organizat ion Details LastModified Time Do you use any illicit or recreational drugs? No [email or web address] Information not available 04/24/2024 Do you or have you ever used any other forms of tobacco or nicotine? No [email or web address] Information not available 04/27/2024 What is your level of alcohol consumption? Occasional [email or web address] Information not available 04/24/2024 Do you or have you ever used smokeless tobacco? Never used smokeless tobacco [email or web address] Information not available 04/24/2024 Do you or have you ever used e-cigarettes or vape? Never used electronic cigarettes [email or web address] Information not available 04/24/2024 Mental Status None recorded. Family History Relationship Description Onset Age of this Age Resolved Age Notes LastModified by Organization Details LastModified Time Father Family history of malignant neoplasm of prostate [email or web address] Not available 2019 09:06:18 Unspecified Relation Family history of diabetes mellitus [email or web address] Not available 2023 10:27:26 Medical History Condition Response High Blood Pressure N Kidney Stones N Depression N Sexually Transmitted Infection N Cancer N Bleeding Disorder N Lung Disease N GERD/Acid Reflux Y High Cholesterol Y Diabetes N Heart Disease Y Immunizations Vaccine Type Date Status Note Provider Nam e and Address Organization Details Recorded Time SARS-COV-2 (COVID-19) vaccine, UNSPECIFIED 4 completed Not Available Health Note 04/24/2024 10:27:31 zoster live 0 completed Not Available Health Note 04/24/2024 10:27:31 influenza, unspecified formulation 4 completed Not Available Health Note 04/24/2024 10:27:31 pneumococcal, unspecified formulation 0 completed Not Available Health Note 04/24/2024 10:27:31 Pneumococcal conjugate PCV 13 5 completed DANY Camacho [facility] 04/24/2020 09:04:44 Past Encounters Encounter ID Performer Location Encounter Start Date Encounter Closed Date Diagnosis/Indication Diagnosis SNOMED-CT Code Diagnosis ICD10 Code Diagnosis IMO Codes Diagnosis Note [id number] Lois Diggs MD [facility] [address] [place] [phone] 04/24/2020 08:52:13 04/24/2020 14:49:46 Blood in urine 57538014 R31.9 cystoscopy is normal today. will check cytology and ct urogram. if all normal see me back in 1 year [id number] Maria Luisa Cates PA-C [facility] [address] [place] [phone] 04/27/2024 09:50:57 04/29/2024 15:50:11 Lower urinary tract symptoms due to benign prostatic hypertrophy 3532436939 9101 N40.1 Urgent deana lester to urinate 87105034 R39.15 [id number] Maria Luisa Cates PA-C [facility] [address] [place] [address],[address] [place] [phone] 05/16/2024 12:15:48 05/17/2024 12:37:58 Lower urinary tract symptoms due to benign prostatic hypertrophy 7851707997 9101 N40.1 Health Concerns Section Related Observation LastModified by Organization Detai ls LastModified Time None Recorded Concern Status LastModified by Organization Details LastModified Time None Recorded Advance Directives Directive N: Payers Insurance Date Sequence Insurance Name Policy Number Policy Cardenas Covered Member ID Cardenas Member ID Guarantor Name 03/30/2025 1 [employer] (MEDICARE REPLACEMENT/A DVANTAGE - PPO) [id number] Chano Duarte [id number] Chano Duarte 03/30/2025 2 [place] [employer] [facility] Chano Duarte [id number] Chano Avendañon 03/30/2025 1 [employer] (PPO) [id number] Chano Duarte [id number] Chano Duarte 03/30/2025 [employer] (MEDICARE REPLACEMENT/A DVANTAGE - PPO) [id number] Chano Duarte [id number] Chano Duarte Notes Date Note Type Note Provider Name and Address Organization Details Recorded Time 04/24/2020 text/html ROS as noted in the HPI patient had trace of blood when he was dehydrated. he is on Xarelto. began after hospital stay. Lois Diggs MD [address] [facility] [address], [place], [address], [facility] 04/24/2020 09:22:26 04/27/2024 text/html ROS as noted in the HPI This is a 84 year old male who is referred for the evaluation and management of benign prostatic hyperplasia with lower urinary tract symptoms. He has been struggling with irritative lower urinary tract symptoms for the past month.His most bothersome symptoms are increased urinary urgency and frequency.He denies gross hematuria.There is no history of recurrent urinary tract infections.There is no history of urinary retention.Current medical therapy includes tamsulosin for over a month. FOS: strong/moderate, continous, no straining or hesitancy. No post void dribbling. DF: every 2 hrs NF; every 2 hrscaffeine: 2 cups, pop8-10ozNo sleep apneano constipation He is participating in prostate cancer screening.His most recent prostate specific antigen was 0.76 ng/mL (02/25/2024)There is no family history of prostate cancer. PMH: CKD, HTNPVR:13ml Maria Luisa Cates PA-C [address] [facility] [address], [place], [address], [facility] 04/27/2024 11:21:23
--- OUTSIDE RECORDS SUMMARY | 2025-04-19 06:17 | XMS_ITS | Encounter Summary ---
Author Organization [facility] Address [facility] [place] [address] Care Team Providers Care Ad Clerk Name Role Phone Javier Hagen MD Primary Care Provider [phone] Oswaldo Augustin MD Unavailable [phone] Stephanie Kelley MD Unavailable [phone] Rikki Martin MD Unavailable [phone] Reason for Visit * Reason Onset Date Comments Prior Authorization 04/05/2025 Encounter Details Date Type Department Care Team (Late st Contact Info) Description 04/05/2025 Telephone [facility] Orthopedics - [facility] [place] [address] [place] [address] Aric Rocha MD [address] [facility] [address] [facility] [address] [place], [place] [id number] Prior Authorization Social History Tobacco Use Types Packs/Day Years [...] on file Legal Sex Male 6:29 AM SPINE SUPERVISOR Gender Identity Choose not to disclose 8:46 AM CDT Sexual Orientation Not on file 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 Letter sent for scanning. Nicky Patel .................... 04/10/2025 12:42 PM E SUPERVISOR * Telephone Encounter - Stefan Patterson PA - 04/07/2025 3:09 PM SPINE SUPERVISOR Called and spoke with appeals. Expedited appeal for inpatient stay is being processed. Request ID is [id number]. Office note from 01/26/25 faxed over to [phone]. SHWETA Vanegas .................... 04/07/2025 3:11 PM E SUPERVISOR * Telephone Encounter - Sophia Cordoba - 04/07/2025 11:01 AM CSTSummary: Update needed Please advise if you have an update on this p2p. On the portal it still is showing the IP is deniedbut cpt code is approved as outpatient. Thank you. Sophia Cordoba .................... 04/07/25 10:51 AM E SUPERVISOR * Telephone Encounter - Stefan Patterson PA - 04/06/2025 3:55 PM SPINE SUPERVISOR Called and left message for Shaista harrell [facility] to give me a call back regarding rescheduling a spfs-co-dnwu for this patient. Told her that yesterday was in room with a patient and bad connection. Was hoping to schedule a wikf-ov-yugy to get inpatient stay approved. SHWETA Vanegas .................... 04/06/2025 3:58 PM E SUPERVISOR * Telephone Encounter - Nicky Patel - 04/06/2025 9:40 AM CST Received message from Shaista, insurance nurse reviewer, IP is denied, automatically approved as 23 hour observation. Call back number [phone]. Provider to advise okay to change to BOP. Nicky Patel .................... 04/06/2025 9:41 AM E SUPERVISOR * Telephone Encounter - Nicky Patel - 04/06/2025 9:25 AM CST Missed peer to peer call on 04/05. Called insurance to reschedule p2p, was informed p2p case has been closed and cannot be rescheduled, next step would be an appeal. Attempted to confirm 23 hour outpatient surgery would be approved, agent was unable to contact the appropriate person to confirm but sent a request for them to call back. Provider to advise. Nicky Patel .................... 04/06/2025 9:33 AM E SUPERVISOR * Telephone Encounter - Nicky Patel - 04/05/2025 10:09 AM CST Called Insurance and scheduled p2p, they will call SHWETA James directly to complete between 2pm and 4pm either today 04/05 or tomorrow 04/06, per insurance peer to peer requirements. Nicky Patel .................... 04/05/2025 10:32 AM E SUPERVISOR * Telephone Encounter - Pushpa Farris - 04/05/2025 9:01 AM CSTSummary: P2P NEEDED MESSAGE FROM [facility]: Chano Duarte, : 1940, is scheduled on 04/24/2025. Order: INPATIENT RIGHT 2-INCISION TOTAL HIP ARTHROPLASTY PRIOR AUTHORIZATION SUBMITTED BUT ONLY PARTIALLY APPROVED, [id number] REQUIRED: - Approved: CPT CODE 42011 - Denied: IP STAY - Denied Reason: [id number] required due to MEDICAL NECESSITY. - Deadline: 04/07/2025 AT 10:00AM (based on payer-imposed deadlines and/or the patient's scheduled DOS) - Impact: PATIENT MAY ONLY PROCEED WITH APPROVED SERVICES. Failure to complete may result in patient being financially responsible for services. URGENT ACTION REQUIRED: - If ivki-vv-jknk will be completed: Contact insurance at [phone], OPT 4 with reference [id number] to complete a Itug-tg-Qfnj - If ujeu-xg-runu will not be completed: Inform the patient that prior authorization for services are not approved - Communicate with the prior auth team at [facility] [[id number]] with whether you will complete esov-nr-yjee or not Thank you. Pushpa Farris .................... 04/05/2025 9:02 AM E SUPERVISOR documented in this encounter Plan of Treatment Upcoming Encounters Date Type Department Care Team (Latest Contact Info) Description 04/24/2025 9:50 AM SPINE SUPERVISOR Hospital Encounter [facility] [address] [place] [address] Aric Rocha MD [address] [address] [place] [address] 04/24/2025 9:50 AM SPINE SUPERVISOR - 04/24/2025 12:02 PM SPINE SUPERVISOR Surgery [facility] [address] [place] [address] Aric Rocha MD [address] [address] [place] [address] INPATIENT RIGHT 2-INCISION TOTAL HIP ARTHROPLASTY 05/08/2025 9:40 AM SPINE SUPERVISOR Office Visit [facility] Orthopedics - [facility] [place] [address] [place] [phone] Sree Andres, ATC [address] [place] [address] 05/16/2025 9:30 AM SPINE SUPERVISOR Office Visit [facility] [address] [place], [place] [phone] Arik Hicks, OD [address] [place] [address] 09/12/2025 10:40 AM CDT Office Visit [facility] [address] [place] [phone] Karen Varghese PA [address] [place], [place] [phone] Scheduled Procedures Name Priority Associated Diagnoses Date/Ti me ARTHROPLASTY HIP MINIMALLY INVASIVE Tier 4: > 90 days Primary osteoarthritis of right hip 04/24/2025 9:50 AM SPINE SUPERVISOR documented as of this encounter Visit Diagnoses Diagnosis Primary osteoarthritis of right hip- Primary Primary localized osteoarthrosis, pelvic region and thigh Primary osteoarthritis of right hip Primary localized osteoarthrosis, pelvic region and thigh documented in this encounter Additional Health Concerns Assessment Noted Time PHQ-9 Depression Total Score: 0 08/23/19 14 8:00 AM CDT A Body Mass Index follow-up plan has been documented for the patient 02/27/2025 12:18 PM CDT PHQ-2 Depression Total Score: 0 02/28/20 25 9:00 AM CDT documented as of this encounter Care Teams Ad Clerk Relationship Specialty Start Date End Date Javier Hagen MD PCP - General 05/21/09 Oswaldo Augustin MD Ophthalmology Surgery 08/18/12 Stephanie Kelley MD Dermatology 08/18/12 Rikki Martin MD [address] [facility] [address] [place] [address] Cardiovascular Disease 11/30/23 documented as of this encounter
[2025-04-19 06:32] VITALS: BP 119/79; PULSE 80; RESP 15; TEMP 36.4; O2SAT 97
[2025-04-19 06:46] VITALS: BP 122/68
[2025-04-19 08:25] VITALS: BP 112/71; PULSE 74; RESP 16; TEMP 36.2; O2SAT 95
[2025-04-19 09:06] VITALS: BP 112/71; PULSE 74; RESP 16; TEMP 36.2; O2SAT 95
== END 2025-04-19 09:07 | disposition home or self-care (01) ==
PROVIDERS: Physician Assistant Medical; Emergency Provider Emergency Medicine
DX: N17.9 Acute kidney failure, unspecified (principal); A41.9 Sepsis, unspecified organism; R53.1 Weakness; I48.91 Unspecified atrial fibrillation; Z03.818 Encounter for observation for suspected exposure to other biological agents ruled out; R11.2 Nausea with vomiting, unspecified; R19.7 Diarrhea, unspecified; R42 Dizziness and giddiness; R53.83 Other fatigue; I10 Essential (primary) hypertension; E78.5 Hyperlipidemia, unspecified; K21.9 Gastro-esophageal reflux disease without esophagitis; Z79.01 Long term (current) use of anticoagulants
CPT/HCPCS: 36415; 71045; 80053; 81003; 83605; 84484; 85025; 87040; 87502; 87635; 93005; 96361; 96374; 96375; 99285; J0696; J2405

== ENCOUNTER → 2025-04-19 04:06 | Outpatient (BNV) | payer SELFPAY | PROVIDERS: Emergency Provider Emergency Medicine; Visit Provider Internal Medicine | DX: I48.91 Unspecified atrial fibrillation (principal) | CPT/HCPCS: 93010 ==

== ENCOUNTER → 2025-04-19 04:48 | Outpatient (BNV) | payer SELFPAY | PROVIDERS: Emergency Provider Emergency Medicine; Visit Provider Radiology Diagnostic Radiology | DX: A41.9 Sepsis, unspecified organism (principal); J84.9 Interstitial pulmonary disease, unspecified | CPT/HCPCS: 71045 ==